=== PATIENT | female | born 1930 | race Caucasian/White ===

== ENCOUNTER 2017-05-10 14:41 | Inpatient (IN) | payer OTHER, MEDICARE ==
[2017-05-10 15:12] VITALS: BMI 30.2
--- NOTE | 2017-05-10 15:28 | PDOC ---
History of Present Illness - General Chief Complaint: Edema Stated Complaint: PCP SENT/SWOLLEN LT HAND Time Seen by Provider: 05/10/17 15:25 History Source: Patient Exam Limitations: No Limitations - History of Present Illness Initial Comments: This is an 87 yo female with h/o dementia, NIDDM, HTN, HLD, and hypothyroidism who presents with her daughter c/o left hand and wrist pain and swelling. She is unable to provide any of her recent medical history secondary to dementia. The patient lives alone but has frequent visitors and a in home sales representative. Her daughter notes that on , the patient's in home sales representative noted she was feeling well and had no hand/wrist pain or swelling. The son visited the patient on Friday and noted she had left hand/wrist pain but no swelling. This morning, the daughter came to visit and saw significant swelling of the left hand. She brought the patient to her PCP, who measured a fever in office, and directed them to the emergency room after the appointment. The patient cannot describe her recent symptoms, but the daughter believes she has otherwise been feeling well lately. Past History - Past Medical History Allergies/Adverse Reactions: Allergies Allergy/AdvReac Type Severity Reaction Status Date / Time No Known Allergies Allergy Verified 05/10/17 15:07 Home Medications: Ambulatory Orders Amlodipine Besylate [Norvasc -] 5 mg PO DAILY 05/10/17 Aspirin [ASA -] 81 mg PO DAILY 05/10/17 Atorvastatin Ca [Lipitor] 20 mg PO DAILY 05/10/17 Cholecalciferol (Vitamin D3) [D3-2000] 1 tab PO DAILY 05/10/17 Cyanocobalamin [Vitamin B12 -] 1 tab PO DAILY 05/10/17 Donepezil HCl [Aricept -] 10 mg PO DAILY 05/10/17 Levothyroxine Sodium [Synthroid] 88 mcg PO DAILY 05/10/17 Levothyroxine [Synthroid -] 100 mcg PO DAILY 05/10/17 Metformin Xr [Glucophage Xr -] 1 tab PO DAILY 05/10/17 Propranolol HCl 60 mg PO DAILY 05/10/17 Uridine 300 mg PO DAILY 05/10/17 Dementia: Yes Diabetes: Yes HTN: Yes Hypercholesterolemia: Yes - Psycho/Social/Smoking Cessation Hx Suicidal Ideation: No Smoking History: Never smoked Review of Systems - Review of Systems Able to Perform ROS?: No (Dementia) *Physical Exam - Vital Signs Last Vital Signs Temp Pulse Resp BP Pulse Ox 99.2 F 76 19 126/75 94 L 05/10/17 15:07 05/10/17 15:07 05/10/17 15:07 05/10/17 15:07 05/10/17 15:07 - Physical Exam General Appearance: Yes: Nourished, Appropriately Dressed, Other (pleasantly confused, hard of hearing). No: Apparent Distress HEENT: positive: EOMI, POONAM, Normal Voice, Hearing Decreased. negative: Scleral Icterus (R), Scleral Icterus (L), Nasal Congestion, Hearing Grossly Normal Neck: positive: Trachea midline, Supple. negative: Tender, Rigid Respiratory/Chest: positive: Lungs Clear, Normal Breath Sounds. negative: Respiratory Distress, Crackles, Rhonchi, Stridor, Wheezing Cardiovascular: positive: Regular Rhythm, Regular Rate, Murmur (3/6 systolic ejection heard best at LUSB). negative: Gallop/S3, Gallop/S4 Comments:: Radial pulses 2+ and symmetric bilaterally Gastrointestinal/Abdominal: positive: Normal Bowel Sounds, Soft. negative: Tender, Organomegaly, Pulsatile Mass, Guarding Musculoskeletal: positive: Normal Inspection. negative: Decreased Range of Motion, Vertebral Tenderness Extremity: positive: Normal Capillary Refill, Other (left dorsal hand with 2+ non-pitting edema extending from mid-proximal phalanges to distal third of forearm, mild dorsal erythema and warmth, pain on ranging wrist +snuffbox tenderness, distally neurovascularly intact). negative: Cyanosis Integumentary: positive: Dry, Warm Neurologic: positive: quill stripper II-XII NML intact, Alert, Normal Mood/Affect, Normal Response ED Treatment Course - LABORATORY CBC & Chemistry Diagram: 05/11/17 06:10 05/11/17 06:10 Medical Decision Making - Medical Decision Making 87 yo female with h/o dementia, NIDDM, HTN, HLD p/w left hand/wrist pain/ swelling/redness/warmth. Reportedly febrile at PCP's office this AM, but not in the ED. Exam notable for mild erythema, mild warmth, and significant swelling of left hand/wrist. Pt is unable to actively range the wrist d/t pain. DDX includes cellulitis, septic arthritis, DVT, gout, abscess. Ordered are CBC, CMP, blood cultures, ESR, CRP, uric acid, hand/wrist x-ray, LUE Doppler. 05/10/17 18:19 Pt's WBC count is 12.5k, remainder of CBC unremarkable. Chemistries hemolyzed along with CRP, uric acid. These are re-ordered. Hand/wrist x-ray without acute bony fracture or deformity. ESR returns as 105. On re-exam left hand and wrist exam is unchanged. Pt is signed out to excellent Dr. Ritchie at 1900. *DC/Admit/Observation/Transfer Diagnosis at time of Disposition: Swelling of joint, hand, left - Discharge Dispostion Condition at time of disposition: Stable - Attestations Physician Attestion: 05/10/17 18:21 I, Dr. Zamzam Dixon, attest that this document has been prepared under my direction and personally reviewed by me in its entirety. I further attest, that it accurately reflects all work, treatment, procedures and medical decision -making performed by me.
[2017-05-10] MEDS ORDERED: ACETAMINOPHEN WITH CODEINE 300MG/30MG TABLET PO ONE (16:03)
--- NOTE | 2017-05-10 16:08 | PDOC ---
Attending Attestation - Medical Decision Making 05/10/17 17:51 Documentation prepared by Eli Nuñez, acting as medical dosimetrist for Kaushal Skelton MD. <Eli Nuñez - Last Filed: 05/10/17 17:51> - Resident Resident Name: Zamzam Dixon - ED Attending Attestation I have performed the following: I have examined & evaluated the patient, The case was reviewed & discussed with the resident, I agree w/resident's findings & plan, Exceptions are as noted - HPI HPI: 05/10/17 16:40 The patient is a 87 year old female with a significant past medical history of dementia, diabetes, hypertension, hypothyroidism, hypercholesterolemia, and osteoporosis, sent by PCP to the Emergency Department with left hand pain and swelling for two days. The patient is a poor historian secondary to dementia, but admits to pain in her left hand. The patient is unsure of injury to the hand and cannot describe the pain. As per the patients daughter, the patient saw her PCP today for swelling and pain to the left hand, wrist, and forearm, who suggested she come to the ED to rule out cellulitis, gout, or fracture. As per the patients daughter, the patients home service advisor noted that the hand was fine on . As per the patients son, the patients hand was painful on Friday but not swollen. - Physicial Exam PE: 05/10/17 16:40 "GENERAL: Well-appearing, well-nourished. No apparent distress. HEENT: Normocephalic, atraumatic. PERRL, EOM intact. CARDIOVASCULAR: Normal S1, S2. Regular rate and rhythm. PULMONARY: Clear to auscultation bilaterally. ABDOMEN: Soft, non-distended, non-tender. EXTREMITIES: Diffuse edema and erythema to left hand, tenderness to palpation over dorsum of the hand most notably at base. Active range of motion limited due to pain although able to passively range hand with minimal pain. No pain upon flexion of extensor tendons. Warm to touch. SKIN: Warm, dry. No rash NEUROLOGICAL: No focal neurological deficits. " 05/10/17 16:43 - Medical Decision Making 05/10/17 16:41 87 F with L hand swelling and pain. Questionable h/o traumatic injury - consider fx (no other signs of traumatic injury on exam). More likely, etiology is infectious. Skin is mildly erythematous, possibly suggesting cellulitis. Suspicion for septic arthritis, as pt unable to range wrist. Will r/o DVT given unilateral hand swelling. - Labs, ESR, CRP - XR - US - IV abx 05/10/17 19:40 Labs thus far notable for elevated ESR. Still pending XR and US reads. Plan to consult ortho once labs and images are completed - concern for septic arthritis with possible overlying cellulitis. Will likely require IV abx and admission. <Kaushal Skelton - Last Filed: 05/10/17 19:44>
[2017-05-10] MEDS ORDERED: ACETAMINOPHEN 325 MG TABLET (FP) ONE (17:10)
[2017-05-10 17:45] LABS: BASOPHIL 0.6 % (0-2.0); EOSINOPHIL 0.1 % (0-4.5); MCH 29.8 pg (25.7-33.7); MCHC 33.8 g/dl (32.0-36.0); MEAN CELL VOLUME 88.3 fl (80-96); MEAN PLT VOLUME 9.6 fl (7.5-11.1); NEUTROPHILS 81.5 % (42.8-82.8); PLATELET COUNT 264 K/MM3 (134-434); WHITE BLOOD COUNT 12.5 K/mm3 (4.0-10.0)
--- NOTE | 2017-05-10 19:53 | PDOC ---
*Physical Exam - Vital Signs Last Vital Signs Temp Pulse Resp BP Pulse Ox 98.1 F 70 18 122/75 94 L 05/10/17 18:34 05/10/17 18:34 05/10/17 18:34 05/10/17 18:34 05/10/17 15:07 ED Treatment Course - LABORATORY CBC & Chemistry Diagram: 05/10/17 17:30 05/10/17 19:00 - ADDITIONAL ORDERS Additional order review: Laboratory Results 05/10/17 05/10/17 17:30 17:30 Sodium Cancelled Potassium Cancelled Chloride Cancelled Carbon Dioxide Cancelled Anion Gap Cancelled BUN Cancelled Creatinine Cancelled Creat Clearance w eGFR Cancelled Random Glucose Cancelled Uric Acid Cancelled Calcium Cancelled Total Bilirubin Cancelled AST Cancelled ALT Cancelled Alkaline Phosphatase Cancelled C-Reactive Protein Cancelled Total Protein Cancelled Albumin Cancelled 05/10/17 17:30 RBC 4.16 MCV 88.3 MCHC 33.8 RDW 15.0 MPV 9.6 Neutrophils % 81.5 Lymphocytes % 8.3 Monocytes % 9.5 Eosinophils % 0.1 Basophils % 0.6 - RADIOLOGY Radiology Studies Ordered: 05/10/17 23:32 L upper extremity US: The left internal jugular vein is patent and compressible. The subclavian vein is patent. The axillary, brachial, basilic and cephalic veins are patent and compressible. The radial and ulnar veins are patent and compressible No evidence of deep vein thrombosis Edema in the superficial soft tissues of the distal forearm L hand XR: There is soft tissue swelling about the wrist and soft tissue swelling over the dorsum of the hand in the region of the MCP joints The bones are osteopenic There is no fracture or dislocation Degenerative changes of the first carpal metacarpal joint - Medications Given in the ED: ED Medications Discontinued Medications Generic Name Dose Route Start Last Admin Trade Name Freq PRN Reason Stop Dose Admin Acetaminophen/Codeine Phosphate 1 tab 05/10/17 16:03 05/10/17 17:11 Tylenol # 3 - PO 05/10/17 16:04 1 tab ONCE ONE Administration Medical Decision Making - Medical Decision Making 05/10/17 19:51 Patient was signed out to me by day team, Dr. Dixon. Follow up needed for: - XR read - CMP, urate, CRP, - Calling ortho ESR at 105. 05/10/17 23:[address] Navarrete, ortho, who wants the patient admitted, ID consult for abx recs. Hospitalist [facility] accepted admission. 05/10/17 23:34 Patient signed out to hospitalist [facility] [employer] [facility]. *DC/Admit/Observation/Transfer Diagnosis at time of Disposition: Swelling of joint, hand, left - Discharge Dispostion Condition at time of disposition: Stable Admit: Yes - Referrals Referrals: Margo Miller MD [Primary Care Provider] - - Patient Instructions - Post Discharge Activity - Attestations Physician Attestion: 05/10/17 23:32 I, Dr. Cortez Ritchie, attest that this document has been prepared under my direction and personally reviewed by me in its entirety. I further attest, that it accurately reflects all work, treatment, procedures and medical decision -making performed by me.
[2017-05-10 19:59] LABS: ALBUMIN 2.8 g/dl (3.4-5.0); ALK PHOS 57 U/L (45-117); ANION GAP 8 (8-16); BILIRUBIN,TOTAL 0.5 mg/dL (0.2-1.0); CALCIUM 8.3 mg/dL (8.5-10.1); CO2 26 mmol/L (21-32); CREATININE 1.1 mg/dL (0.55-1.02); GLUCOSE,RANDOM 126 mg/dL (74-106); SGPT/ALT 14 U/L (12-78); TOT PROT 7.2 g/dl (6.4-8.2); URIC ACID 5.3 mg/dL (2.6-7.2)
[2017-05-10 20:00] LABS: SGOT/AST 27 U/L (15-37)
[2017-05-10] MEDS ORDERED: diphenhydrAMINE HCL 25 MG CAPSULE (FP) PO ONE ×2 (20:34→20:41)
[2017-05-10 20:35] LABS: C-REACTIVE PROTEIN 8.5 MG/DL (0.00-0.3)
--- NOTE | 2017-05-10 23:43 | HP ---
CHIEF COMPLAINT: Left hand/wrist pain, swelling PCP: Dr. Margo Miller HISTORY OF PRESENT ILLNESS: This is a 87 y/o woman with a past medical history of Dementia. Who presents to the ED with her daughter from the PCPs office, for left hand/wrist pain, and swelling. The patient has Dementia and is unable to provide HPI. The patient's daughter who is a physician, reports that the patient was complaining of hand pain on but no swelling. But, today the daughter notes there is erythema, edema, warmth and pain to the patient's left hand. Insect Bite or Trauma is unknown. Per the daughter the patient lives alone and has a SERVICE ADMINISTRATOR from Fri-. ER course was notable for: (1) WBC 12.9, ESR 105, CRP 8.5 (2) Xray of L hand/wrist- no fx, no dislocation, soft tissue swelling (3) Doppler LUE- neg DVT, soft tissue swelling Recent Travel: None PAST MEDICAL HISTORY: HTN HLD DM Hypothyroid Dementia Familial Tremors OSAGE PAST SURGICAL HISTORY: Social History: Smoking: Never Alcohol: None Drugs: None Family History: Non Contributory Allergies No Known Allergies Allergy (Verified 05/10/17 15:07) HOME MEDICATIONS: Home Medications Medication Instructions Recorded Amlodipine Besylate [Norvasc -] 5 mg PO DAILY 05/10/17 Aspirin [ASA -] 81 mg PO DAILY 05/10/17 Atorvastatin Ca [Lipitor] 20 mg PO DAILY 05/10/17 Cholecalciferol (Vitamin D3) 1 tab PO DAILY 05/10/17 [D3-2000] Cyanocobalamin [Vitamin B12 -] 2 tab PO DAILY 05/10/17 Donepezil HCl [Aricept -] 10 mg PO DAILY 05/10/17 Levothyroxine Sodium [Synthroid] 88 mcg PO DAILY 05/10/17 Levothyroxine [Synthroid -] 100 mcg PO DAILY 05/10/17 Metformin Xr [Glucophage Xr -] 1 tab PO DAILY 05/10/17 Propranolol HCl 60 mg PO DAILY 05/10/17 Uridine 300 mg PO DAILY 05/10/17 REVIEW OF SYSTEMS Unable to obtain- Dementia CONSTITUTIONAL: Absent: fever, chills, diaphoresis, generalized weakness, malaise, loss of appetite, weight change HEENT: Absent: rhinorrhea, nasal congestion, throat pain, throat swelling, difficulty swallowing, mouth swelling, ear pain, eye pain, visual changes CARDIOVASCULAR: Absent: chest pain, syncope, palpitations, irregular heart rate, lightheadedness , peripheral edema RESPIRATORY: Absent: cough, shortness of breath, dyspnea with exertion, orthopnea, wheezing, stridor, hemoptysis GASTROINTESTINAL: Absent: abdominal pain, abdominal distension, nausea, vomiting, diarrhea, constipation, melena, hematochezia GENITOURINARY: Absent: dysuria, frequency, urgency, hesitancy, hematuria, flank pain, genital pain MUSCULOSKELETAL: Absent: myalgia, arthralgia, joint swelling, back pain, neck pain SKIN: Absent: rash, itching, pallor HEMATOLOGIC/IMMUNOLOGIC: Absent: easy bleeding, easy bruising, lymphadenopathy, frequent infections ENDOCRINE: Absent: unexplained weight gain, unexplained weight loss, heat intolerance, cold intolerance NEUROLOGIC: Absent: headache, focal weakness or paresthesias, dizziness, unsteady gait, seizure, mental status changes, bladder or bowel incontinence PSYCHIATRIC: Absent: anxiety, depression, suicidal or homicidal ideation, hallucinations. PHYSICAL EXAMINATION Vital Signs - 24 hr 05/10/17 05/10/17 05/10/17 15:07 18:34 20:49 Temperature 99.2 F 98.1 F 98.2 F Pulse Rate 76 Pulse Rate [ 70 65 Apical] Respiratory 19 18 18 Rate Blood Pressure 126/75 Blood Pressure 122/75 112/70 [Right Arm] O2 Sat by Pulse 94 L 99 Oximetry (%) GENERAL: Obese, asleep but easily arousable, oriented to baseline, in no acute distress. HEAD: Normal with no signs of trauma. EYES: Pupils equal, round and reactive to light, extraocular movements intact, sclera anicteric, conjunctiva clear. No lid lag. EARS, NOSE, THROAT: Ears normal, nares patent, oropharynx clear without exudates. Dry mucous membranes. NECK: Normal range of motion, supple without lymphadenopathy, JVD, or masses. LUNGS: Breath sounds equal, clear to auscultation bilaterally. No wheezes, and no crackles. No accessory muscle use. HEART: Regular rate and rhythm, normal S1 and S2, 2/6 systolic murmur, rub or gallop. ABDOMEN: Soft, nontender, not distended, normoactive bowel sounds, no guarding, no rebound, no masses. No hepatomegaly or splenomegaly. MUSCULOSKELETAL: Normal range of motion at all joints. No bony deformities or tenderness. No CVA tenderness. UPPER EXTREMITIES: 2+ pulses, warm, well-perfused. No cyanosis. No clubbing. +1 edema to left hand LOWER EXTREMITIES: 2+ pulses, warm, well-perfused. No calf tenderness. No peripheral edema. NEUROLOGICAL: Cranial nerves II-XII intact. Normal speech. Gait not observed. PSYCHIATRIC: Cooperative. Limited eye contact. Appropriate mood and affect. SKIN: Warm, dry, normal turgor, no rashes, normal capillary refill. + erythematous, warm to touch non-fluctuant to dorsal aspect of left hand noted Laboratory Results - last 24 hr 05/10/17 05/10/17 05/10/17 17:30 17:30 17:30 WBC 12.5 H RBC 4.16 Hgb 12.4 Hct 36.8 MCV 88.3 MCH 29.8 MCHC 33.8 RDW 15.0 Plt Count 264 MPV 9.6 Neutrophils % 81.5 Lymphocytes % 8.3 Monocytes % 9.5 Eosinophils % 0.1 Basophils % 0.6 ESR Sodium Cancelled Potassium Cancelled Chloride Cancelled Carbon Dioxide Cancelled Anion Gap Cancelled BUN Cancelled Creatinine Cancelled Creat Clearance w eGFR Cancelled Random Glucose Cancelled Uric Acid Cancelled Calcium Cancelled Total Bilirubin Cancelled AST Cancelled ALT Cancelled Alkaline Phosphatase Cancelled C-Reactive Protein Cancelled Total Protein Cancelled Albumin Cancelled 05/10/17 05/10/17 17:30 19:00 WBC RBC Hgb Hct MCV MCH MCHC RDW Plt Count MPV Neutrophils % Lymphocytes % Monocytes % Eosinophils % Basophils % ESR 105 H Sodium 134 L Potassium 4.6 Chloride 100 Carbon Dioxide 26 Anion Gap 8 BUN 25 H Creatinine 1.1 H Creat Clearance w eGFR 47.09 Random Glucose 126 H Uric Acid 5.3 Calcium 8.3 L Total Bilirubin 0.5 AST 27 ALT 14 Alkaline Phosphatase 57 C-Reactive Protein 8.5 H Total Protein 7.2 Albumin 2.8 L ASSESSMENT/PLAN: This is a 87 y/o woman with a PMHx of: Dementia, DM, Hypercholesterolemia, Hypothyroid, Familial Tremors, OSAGE. Admitted Cellulitis Left Hand for further evaluation of their emergent condition. Problem List - Problem (1) Cellulitis of hand, left Assessment/Plan: - Likely secondary to infection vs trauma vs DVT - ESR 105, CRP 8.5, WBC 12.5 likely due to infection - Blood Cultures-pending - Xray left hand/wrist- reviewed - Duplex of LUE- negative for DVT - Started Clindamycin for MRSA coverage - Appreciate ID Consult - Appreciate Ortho Consult - Elevate extremity - Tylenol prn - Monitor CBCD - Monitor vitals Code(s): L03.114 - CELLULITIS OF LEFT UPPER LIMB (2) Swelling of joint, hand, left Assessment/Plan: - See above Code(s): M25.442 - EFFUSION, LEFT HAND (3) Dementia Assessment/Plan: - Continue Aricept, Uridine Code(s): F03.90 - UNSPECIFIED DEMENTIA WITHOUT BEHAVIORAL DISTURBANCE (4) HTN (hypertension) Assessment/Plan: - Controlled - Monitor BP - Continue Norvasc - Low Na Diet - Monitor renal function Code(s): I10 - ESSENTIAL (PRIMARY) HYPERTENSION (5) Diabetes mellitus Assessment/Plan: - Stable - BGMs - Continue Metformin - Monitor renal function Code(s): E11.9 - TYPE 2 DIABETES MELLITUS WITHOUT COMPLICATIONS (6) Hypothyroidism Assessment/Plan: - TSH in am - Continue home meds Code(s): E03.9 - HYPOTHYROIDISM, UNSPECIFIED (7) OSAGE (hard of hearing) Code(s): H91.90 - UNSPECIFIED HEARING LOSS, UNSPECIFIED EAR (8) Familial tremor Code(s): G25.0 - ESSENTIAL TREMOR (9) DVT prophylaxis Assessment/Plan: - OOB - SCDs - Heparin SQ Code(s): [id number] - Visit type - Emergency Visit Emergency Visit: Yes ED Registration Date: 05/10/17 Care time: The patient presented to the Emergency Department on the above date and was hospitalized for further evaluation of their emergent condition. - New Patient This patient is new to me today: Yes Date on this admission: 05/10/17 - Critical Care Critical Care patient: No
[2017-05-11] MEDS: CLINDAMYCIN 900 MG PREMIX IVPB 50 ML IVPB SCH ×2 (01:43→10:20)
[2017-05-11] MEDS: LEVOTHYROXINE NA 100 MCG TABLET (FP) PO SCH (06:44)
[2017-05-11 07:30] LABS: BASOPHIL 0.5 % (0-2.0); EOSINOPHIL 1.5 % (0-4.5); MCH 29.5 pg (25.7-33.7); MCHC 33.5 g/dl (32.0-36.0); MEAN CELL VOLUME 88.1 fl (80-96); MEAN PLT VOLUME 9.1 fl (7.5-11.1); PLATELET COUNT 223 K/MM3 (134-434); RDW 15.1 % (11.6-15.6); WHITE BLOOD COUNT 10.2 K/mm3 (4.0-10.0)
[2017-05-11 08:15] LABS: ANION GAP 8 (8-16); CALCIUM 9.1 mg/dL (8.5-10.1); CO2 26 mmol/L (21-32); CREATININE 0.9 mg/dL (0.55-1.02); GLUCOSE,RANDOM 123 mg/dL (74-106)
[2017-05-11] MEDS ORDERED: CHOLECALCIFEROL (VITAMIN D3) 1,000 UNIT TABLET (FP) PO SCH (10:00)
[2017-05-11] MEDS: ASPIRIN 81 MG CHEWABLE TABLETS PO SCH (10:20)
[2017-05-11] MEDS: ATORVASTATIN CA 20 MG TABLET (FP) PO SCH (10:20)
[2017-05-11] MEDS: CYANOCOBALAMIN 1,000 MCG TABLET (FP) PO SCH (10:20)
[2017-05-11] MEDS: DONEPEZIL HCL 10 MG TABLET (FP) PO SCH (10:20)
--- NOTE | 2017-05-11 10:56 | CON.ORTH ---
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 Endocrine: Yes: Diabetes Mellitus - Alcohol/Substance Use Hx Alcohol Use: No - Smoking History Smoking history: Never smoked Home Medications - Allergies Allergies/Adverse Reactions: Allergies Allergy/AdvReac Type Severity Reaction Status Date / Time No Known Allergies Allergy Verified 05/10/17 15:07 - Home Medications Home Medications: Ambulatory Orders Amlodipine Besylate [Norvasc -] 5 mg PO DAILY 05/10/17 Aspirin [ASA -] 81 mg PO DAILY 05/10/17 Atorvastatin Ca [Lipitor] 20 mg PO DAILY 05/10/17 Cholecalciferol (Vitamin D3) [D3-2000] 1 tab PO DAILY 05/10/17 Cyanocobalamin [Vitamin B12 -] 1 tab PO DAILY 05/10/17 Donepezil HCl [Aricept -] 10 mg PO DAILY 05/10/17 Levothyroxine Sodium [Synthroid] 88 mcg PO DAILY 05/10/17 Levothyroxine [Synthroid -] 100 mcg PO DAILY 05/10/17 Metformin Xr [Glucophage Xr -] 1 tab PO DAILY 05/10/17 Propranolol HCl 60 mg PO DAILY 05/10/17 Uridine 300 mg PO DAILY 05/10/17 Review of Systems - Review of Systems Constitutional: denies: Chills, Diaphoresis, Fever HENT: reports: Hearing Loss. denies: Difficult Swallowing Neck: denies: Decreased ROM, Pain on Movement Cardiovascular: denies: Chest Pain, Palpitations Respiratory: denies: Cough Gastrointestinal: denies: Abdominal Pain Physical Exam for Ortho Vital Signs: Vital Signs Temperature 98.8 F 05/11/17 07:26 Pulse Rate 71 05/11/17 07:26 Respiratory Rate 18 05/11/17 07:26 Blood Pressure 124/59 05/11/17 07:26 O2 Sat by Pulse Oximetry (%) 99 05/11/17 01:09 Constitutional: Yes: Well Nourished, No Distress, Calm Extremities: Yes: Other (LUE - no definite erythema, diffuse dorsal swelling of hand, diffuse moderate tenderness, able to move wrist, finger but painful with limited ROM, no effusion at wrist, sensation intact to LT, 2+ rad pulse, intact thumbs up, finger abduction, ok sign) Labs: CBC, BMP 05/11/17 06:10 05/11/17 06:10 Imaging - Results X-ray: Report Reviewed, Image Reviewed (mild degenerative changes to the left wrist and hand) Problem List - Problems (1) Cellulitis of hand, left Code(s): L03.114 - CELLULITIS OF LEFT UPPER LIMB Assessment/Plan -based on exam today no evidence of septic wrist, swelling, pain are more over hand -continue abx -elevate -OT for ROM -no need for aspiration/intervention
[2017-05-11] MEDS: [UNRECOGNIZED DRUG - OTHER] PO SCH (12:29)
[2017-05-11] MEDS ORDERED: PT OWN MED DRAWER 7, Y5N ONE (12:39)
[2017-05-11] MEDS ORDERED: ACETAMINOPHEN 325 MG TABLET (FP) PO PRN (14:58)
--- NOTE | 2017-05-11 15:00 | CONSULT ---
Consult Consult Specialty:: INFECTIOUS DISEASE Reason for Consultation:: Left hand swelling - History of Present Illness Chief Complaint: Left hand swelling and pain, Recent fever History of Present Illness: Asked to evaluate this 87 y.o. female who presents with Left hand/wrist swelling and tenderness first noted by family on Friday. Pt not reliable source of history due to dementia. History provided by daughter at bedside. She was seen by her PMD and noted to be febrile and was sent to the ER. She has been afebrile in the ER and wbc was slightly elevated but now normal. Pt without recent known insect bite or trauma. Currently patient is alert and she states her hand is tender and has decreased range of motion due to pain. No other complaints. - History Source History Provided By: Family Member - Past Medical History ORTHOPEDIC SPECIALIST: Yes: Dementia Cardio/Vascular: Yes: HTN, Hyperlipdemia Endocrine: Yes: Diabetes Mellitus, Hypothyroidism - Alcohol/Substance Use Hx Alcohol Use: No - Smoking History Smoking history: Never smoked - Social History ADL: Independent Home Medications - Allergies Allergies/Adverse Reactions: Allergies Allergy/AdvReac Type Severity Reaction Status Date / Time No Known Allergies Allergy Verified 05/10/17 15:07 - Home Medications Home Medications: Ambulatory Orders Amlodipine Besylate [Norvasc -] 5 mg PO DAILY 05/10/17 Aspirin [ASA -] 81 mg PO DAILY 05/10/17 Atorvastatin Ca [Lipitor] 20 mg PO DAILY 05/10/17 Cholecalciferol (Vitamin D3) [D3-2000] 1 tab PO DAILY 05/10/17 Cyanocobalamin [Vitamin B12 -] 1 tab PO DAILY 05/10/17 Donepezil HCl [Aricept -] 10 mg PO DAILY 05/10/17 Levothyroxine Sodium [Synthroid] 88 mcg PO DAILY 05/10/17 Levothyroxine [Synthroid -] 100 mcg PO DAILY 05/10/17 Metformin Xr [Glucophage Xr -] 1 tab PO DAILY 05/10/17 Propranolol HCl 60 mg PO DAILY 05/10/17 Uridine 300 mg PO DAILY 05/10/17 Review of Systems - Review of Systems Eyes: reports: No Symptoms HENT: reports: No Symptoms Neck: reports: No Symptoms Cardiovascular: reports: No Symptoms Respiratory: reports: No Symptoms Gastrointestinal: reports: No Symptoms Genitourinary: reports: No Symptoms Musculoskeletal: reports: Decreased ROM Integumentary: reports: Erythema (Left hand swelling, erythema, warmth, tenderness) Physical Exam Vital Signs: Vital Signs Temperature 98.5 F 05/11/17 11:00 Pulse Rate 72 05/11/17 11:00 Respiratory Rate 18 05/11/17 11:00 Blood Pressure 95/55 05/11/17 11:00 O2 Sat by Pulse Oximetry (%) 95 05/11/17 09:00 Constitutional: Yes: No Distress HENT: Yes: WNL Neck: Yes: WNL Cardiovascular: Yes: WNL Respiratory: Yes: WNL, CTA Bilaterally Gastrointestinal: Yes: WNL, Normal Bowel Sounds Renal/: Yes: WNL Extremities: Yes: Erythema Edema: Yes Edema: LUE: 1+ (Lt hand extending to distal forearm, no fluctuance) Peripheral Pulses WNL: Yes Neurological: Yes: Alert Labs: CBC, BMP 05/11/17 06:10 05/11/17 06:10 Imaging - Results X-ray: Report Reviewed (soft tissue swelling of forearm, no fracture/bone lesions) Assessment/Plan Lt hand/wrist edema/Cellulitis DM -- continue Clindamycin for now -- f/u blood cultures -- continue monitor, pt currently afebrile, stable -- Orthopedics eval appreciated
--- NOTE | 2017-05-11 15:26 | PN ---
Physical Exam: SUBJECTIVE: Patient seen and examined. She has LUE tenderness. She doesn't remember hitting it or any bug bites. Daughter at bedside. OBJECTIVE: Vital Signs Period Temp Pulse Resp BP Sys/Zavaal Pulse Ox Last 24 Hr 98.2 F-98.9 F 69-72 18-18 95-126/55-64 95-99 PE Neuro: alert, awake, cn 2-12intact, confused +tremor Pulm: mild b/l basilar crackles, no wheezing CV: s1 s2 rrr 3/6 systolic murmur Abd: s nt nd + bs Ext: L great toe fungal infection- stable, no le edema Skin: clear Laboratory Results - last 24 hr 05/11/17 05/11/17 05/11/17 06:06 06:10 06:10 WBC 10.2 H RBC 4.09 Hgb 12.1 Hct 36.1 MCV 88.1 MCH 29.5 MCHC 33.5 RDW 15.1 Plt Count 223 MPV 9.1 Neutrophils % 71.0 Lymphocytes % 13.9 D Monocytes % 13.1 H Eosinophils % 1.5 D Basophils % 0.5 Sodium 134 L Potassium 4.2 Chloride 100 Carbon Dioxide 26 Anion Gap 8 BUN 19 H D Creatinine 0.9 POC Glucometer 176 Random Glucose 123 H Calcium 9.1 TSH 05/11/17 06:10 TSH 1.99 Current Medications Generic Name Dose Route Start Last Admin Trade Name Freq PRN Reason Stop Dose Admin Acetaminophen 650 mg 05/11/17 14:58 05/11/17 15:30 Tylenol - PO 650 mg Q4H PRN Administration FEVER OR PAIN Amlodipine Besylate 5 mg 05/11/17 10:00 05/11/17 15:39 Norvasc - PO Not Given DAILY SARAHY Aspirin 81 mg 05/11/17 10:00 05/11/17 10:20 Asa - PO 81 mg DAILY SARAHY Administration Atorvastatin Calcium 20 mg 05/11/17 10:00 05/11/17 10:20 Lipitor - PO 20 mg DAILY SARAHY Administration Cyanocobalamin 1,000 mcg 05/11/17 10:00 05/11/17 10:20 Vitamin B12 - PO 1,000 mcg DAILY SARAHY Administration Donepezil HCl 10 mg 05/11/17 10:00 05/11/17 10:20 Aricept - PO 10 mg DAILY SARAHY Administration Clindamycin Phosphate 50 mls @ 100 mls/hr 05/11/17 18:00 Cleocin 600 Mg Premix Ivpb - IVPB Q8H-IV SARAHY Insulin Aspart 1 vial 05/11/17 16:30 Novolog Vial Sliding Scale - SQ ACHS [facility] Protocol Levothyroxine Sodium 88 mcg 05/12/17 07:00 Synthroid - PO Q2D@0700 SARAHY Levothyroxine Sodium 100 mcg 05/11/17 07:00 05/11/17 06:44 Synthroid - PO 100 mcg Q2D@0700 SARAHY Administration Non-Formulary Medication 300 mg 05/11/17 11:30 05/11/17 12:29 Uridine [Uridine] PO 300 mg DAILY SARAHY Administration Propranolol HCl 60 mg 05/11/17 15:36 Inderal La - PO DAILY [facility] Assessment: 87 year old female with pmhx dementia, DM II, HTN, HLD, and osteoporosis admitted with fever and increased L hand swelling x2 days Plan: 1. Left hand/forearm cellulitis - Xray negative for gas, soft tissue swelling - DVT negative - Decrease clind 600mg q8 - Elevated per ortho, no acute intervention - ID following 2. HTN - Controlled - Propranolol 60mg daily (held today low bp) - Norvasc 5mg daily 3. Hypothyroidism - Synthroid 100mcg (received today) - Synthroid 88mcg q2d 4. Dementia - Aricept 10mg daily - Vit 12 5. DM II - ISS, BGM ACHS - Hold metformin 6. HLD - Lipitor - ASA Visit type - Emergency Visit Emergency Visit: Yes ED Registration Date: 05/10/17 Care time: The patient presented to the Emergency Department on the above date and was hospitalized for further evaluation of their emergent condition. - New Patient This patient is new to me today: Yes Date on this admission: 05/11/17 - Critical Care Critical Care patient: No
[2017-05-11] MEDS: amLODIPine BESYLATE 5 MG TABLET (FP) PO SCH (15:39)
[2017-05-11] MEDS: CLINDAMYCIN 600MG PREMIX IVPB 50 ML IVPB SCH (17:19)
[2017-05-11] MEDS: INSULIN SLIDING SCALE (NOVOLOG) 1 VIAL SQ SCH ×2 (17:19→21:58)
[2017-05-11] MEDS ORDERED: CEFAZOLIN (PRE-DOCKED) 50 ML IVPB SCH (18:00)
[2017-05-12] MEDS: CLINDAMYCIN 600MG PREMIX IVPB 50 ML IVPB SCH ×2 (01:22→10:49)
[2017-05-12] MEDS: LEVOTHYROXINE NA 88 MCG TABLET (FP) PO SCH (06:24)
[2017-05-12] MEDS: INSULIN SLIDING SCALE (NOVOLOG) 1 VIAL SQ SCH ×4 (06:24→23:59)
[2017-05-12 08:37] LABS: BASOPHIL 0.7 % (0-2.0); EOSINOPHIL 3.5 % (0-4.5); MCH 30.1 pg (25.7-33.7); MCHC 34.1 g/dl (32.0-36.0); MEAN CELL VOLUME 88.4 fl (80-96); MEAN PLT VOLUME 8.9 fl (7.5-11.1); NEUTROPHILS 71.1 % (42.8-82.8); PLATELET COUNT 225 K/MM3 (134-434); RDW 14.9 % (11.6-15.6); WHITE BLOOD COUNT 9.5 K/mm3 (4.0-10.0)
--- NOTE | 2017-05-12 08:53 | PN ---
Progress Note (short form) - Note Progress Note: Subjective: The patient was seen and examined at the bedside, she has complaints that her eggs are not salty enough. Instructed patient to keep left arm elevated. Current Medications Generic Name Dose Route Start Last Admin Trade Name Freq PRN Reason Stop Dose Admin Acetaminophen 650 mg 05/11/17 14:58 05/11/17 15:30 Tylenol - PO 650 mg Q4H PRN Administration FEVER OR PAIN Amlodipine Besylate 5 mg 05/11/17 10:00 05/11/17 15:39 Norvasc - PO Not Given DAILY SARAHY Aspirin 81 mg 05/11/17 10:00 05/11/17 10:20 Asa - PO 81 mg DAILY SARAHY Administration Atorvastatin Calcium 20 mg 05/11/17 10:00 05/11/17 10:20 Lipitor - PO 20 mg DAILY SARAHY Administration Cyanocobalamin 1,000 mcg 05/11/17 10:00 05/11/17 10:20 Vitamin B12 - PO 1,000 mcg DAILY SARAHY Administration Donepezil HCl 10 mg 05/11/17 10:00 05/11/17 10:20 Aricept - PO 10 mg DAILY SARAHY Administration Clindamycin Phosphate 50 mls @ 100 mls/hr 05/11/17 18:00 05/12/17 01:22 Cleocin 600 Mg Premix Ivpb - IVPB 100 mls/hr Q8H-IV SARAHY Administration Insulin Aspart 1 vial 05/11/17 16:30 05/12/17 06:24 Novolog Vial Sliding Scale - SQ Not Given ACHS [facility] Protocol Levothyroxine Sodium 88 mcg 05/12/17 07:00 05/12/17 06:24 Synthroid - PO 88 mcg Q2D@0700 SARAHY Administration Levothyroxine Sodium 100 mcg 05/11/17 07:00 05/11/17 06:44 Synthroid - PO 100 mcg Q2D@0700 SARAHY Administration Non-Formulary Medication 300 mg 05/11/17 11:30 05/11/17 12:29 Uridine [Uridine] PO 300 mg DAILY SARAHY Administration Propranolol HCl 60 mg 05/11/17 15:36 Inderal La - PO DAILY SARAHY Objective: Vital Signs Period Temp Pulse Resp BP Sys/Zavala Pulse Ox Last 24 Hr 98.2 F-99.5 F 66-72 18-20 95-119/55-60 95 Physical Exam: General: Confused, NAD Lungs: CTA bilaterally Heart: RRR, S1S2 Abd: Soft, non-tender, non-distended. Normoactive bowel sounds Ext: B/l upper extremity tremor. LUE with erythema and dependent edema Neuro: No focal deficits CBCD WBC 9.5 K/mm3 (4.0-10.0) 05/12/17 07:05 RBC 4.01 M/mm3 (3.60-5.2) 05/12/17 07:05 Hgb 12.1 GM/dL (10.7-15.3) 05/12/17 07:05 Hct 35.5 % (32.4-45.2) 05/12/17 07:05 MCV 88.4 fl (80-96) 05/12/17 07:05 MCHC 34.1 g/dl (32.0-36.0) 05/12/17 07:05 RDW 14.9 % (11.6-15.6) 05/12/17 07:05 Plt Count 225 K/MM3 (134-434) 05/12/17 07:05 MPV 8.9 fl (7.5-11.1) 05/12/17 07:05 CMP Sodium 134 mmol/L (136-145) L 05/11/17 06:10 Potassium 4.2 mmol/L (3.5-5.1) 05/11/17 06:10 Chloride 100 mmol/L (98-107) 05/11/17 06:10 Carbon Dioxide 26 mmol/L (21-32) 05/11/17 06:10 Anion Gap 8 (8-16) 05/11/17 06:10 BUN 19 mg/dL (7-18) H D 05/11/17 06:10 Creatinine 0.9 mg/dL (0.55-1.02) 05/11/17 06:10 Creat Clearance w eGFR 47.09 (>60) 05/10/17 19:00 Random Glucose 123 mg/dL (74-106) H 05/11/17 06:10 Calcium 9.1 mg/dL (8.5-10.1) 05/11/17 06:10 Total Bilirubin 0.5 mg/dL (0.2-1.0) 05/10/17 19:00 AST 27 U/L (15-37) 05/10/17 19:00 ALT 14 U/L (12-78) 05/10/17 19:00 Alkaline Phosphatase 57 U/L (45-117) 05/10/17 19:00 Total Protein 7.2 g/dl (6.4-8.2) 05/10/17 19:00 Albumin 2.8 g/dl (3.4-5.0) L 05/10/17 19:00 Microbiology 05/10/17 17:30 Blood - Peripheral Venous Blood Culture - Preliminary NO GROWTH OBTAINED AFTER 24 HOURS, INCUBATION TO CONTINUE FOR 4 DAYS. 05/10/17 17:30 Blood - Peripheral Venous Blood Culture - Preliminary NO GROWTH OBTAINED AFTER 24 HOURS, INCUBATION TO CONTINUE FOR 4 DAYS. Assessment: This is an 87 year old female with PMHx of dementia, DM, HTN, hyperlipidemia, osteoporosis, who presented to the ED with fever and left hand swelling x2 days. Plan: 1) ID: Left upper extremity cellulitis - LUE doppler negative for DVT - Left arm x-ray with no acute pathology. Negative for gas - Continue Clindamycin 600mg IVPB q8h - Keep left arm elevated - Appreciate ID consult - Appreciate ortho consult 2) Cardiology: HTN - Controlled - Continue Propranolol - Continue Norvasc - Hold BP meds if SBP <110 Hyperlipidemia - Continue Lipitor 3) Endocrine: Hypothyroidism - Continue Synthroid DM - BGM ACHS - ISS ACHS 4) Psych: Dementia - Continue Aricept - Continue Cyanocobalamin 5) F/E/N: - Monitor electrolytes - Sodium controlled, diabetic diet 6) Prophylaxis: - PT - Heparin 5,000u sq bid 7) Dispo: - Requires continued inpatient care CODE STATUS: FULL CODE Visit type - Emergency Visit Emergency Visit: Yes ED Registration Date: 05/10/17 Care time: The patient presented to the Emergency Department on the above date and was hospitalized for further evaluation of their emergent condition. - New Patient This patient is new to me today: Yes Date on this admission: 05/12/17 - Critical Care Critical Care patient: No
[2017-05-12 09:02] LABS: ANION GAP 6 (8-16); CALCIUM 8.6 mg/dL (8.5-10.1); CO2 28 mmol/L (21-32); CREATININE 0.9 mg/dL (0.55-1.02); GLUCOSE,RANDOM 117 mg/dL (74-106)
[2017-05-12] MEDS ORDERED: PT OWN MED DRAWER 7, Y5N ONE ×2 (10:44→17:47)
[2017-05-12] MEDS: DONEPEZIL HCL 10 MG TABLET (FP) PO SCH (10:49)
[2017-05-12] MEDS: HEPARIN NA (PORCINE) 5,000 UNITS/ML 1ML VIAL SQ SCH ×2 (10:50→23:00)
[2017-05-12] MEDS: CYANOCOBALAMIN 1,000 MCG TABLET (FP) PO SCH (10:50)
[2017-05-12] MEDS: ASPIRIN 81 MG CHEWABLE TABLETS PO SCH (10:50)
[2017-05-12] MEDS: ATORVASTATIN CA 20 MG TABLET (FP) PO SCH (10:50)
[2017-05-12] MEDS: amLODIPine BESYLATE 5 MG TABLET (FP) PO SCH (10:50)
[2017-05-12] MEDS: [UNRECOGNIZED DRUG - OTHER] PO SCH (10:51)
--- NOTE | 2017-05-12 11:31 | PN ---
Progress Note, Physician History of Present Illness: patient with swelling of the left hand was on clinda patients swelling of the hand extends upto her elbow tenderness at the wrist - Current Medication List Current Medications: Active Medications Acetaminophen (Tylenol -) 650 mg PO Q4H PRN PRN Reason: FEVER OR PAIN Last Admin: 05/11/17 15:30 Dose: 650 mg Amlodipine Besylate (Norvasc -) 5 mg PO DAILY [facility] Last Admin: 05/12/17 10:50 Dose: 5 mg Aspirin (Asa -) 81 mg PO DAILY [facility] Last Admin: 05/12/17 10:50 Dose: 81 mg Atorvastatin Calcium (Lipitor -) 20 mg PO DAILY [facility] Last Admin: 05/12/17 10:50 Dose: 20 mg Cyanocobalamin (Vitamin B12 -) 1,000 mcg PO DAILY [facility] Last Admin: 05/12/17 10:50 Dose: 1,000 mcg Donepezil HCl (Aricept -) 10 mg PO DAILY [facility] Last Admin: 05/12/17 10:49 Dose: 10 mg Heparin Sodium (Porcine) (Heparin -) 5,000 unit SQ BID [facility] Last Admin: 05/12/17 10:50 Dose: 5,000 unit Piperacillin Sod/Tazobactam (Sod 3.375 gm/ Dextrose) 50 mls @ 100 mls/hr IVPB Q8H-IV SARAHY PRN Reason: Protocol Insulin Aspart (Novolog Vial Sliding Scale -) 1 vial SQ ACHS [facility] PRN Reason: Protocol Last Admin: 05/12/17 11:23 Dose: Not Given Levothyroxine Sodium (Synthroid -) 88 mcg PO Q2D@0700 [facility] Last Admin: 05/12/17 06:24 Dose: 88 mcg Levothyroxine Sodium (Synthroid -) 100 mcg PO Q2D@0700 [facility] Last Admin: 05/11/17 06:44 Dose: 100 mcg Non-Formulary Medication (Uridine [Uridine]) 300 mg PO DAILY [facility] Last Admin: 05/12/17 10:51 Dose: Not Given Propranolol HCl (Inderal La -) 60 mg PO DAILY [facility] Last Admin: 05/12/17 10:52 Dose: 60 mg - Objective Vital Signs: Vital Signs Temperature 99.5 F 05/12/17 06:23 Pulse Rate 66 05/12/17 06:23 Respiratory Rate 20 05/12/17 06:23 Blood Pressure 119/60 05/12/17 06:23 O2 Sat by Pulse Oximetry (%) 95 05/11/17 09:00 Constitutional: Yes: Calm, Mild Distress Eyes: Yes: Conjunctiva Clear Cardiovascular: Yes: Regular Rate and Rhythm Respiratory: Yes: Regular, CTA Bilaterally Gastrointestinal: Yes: Normal Bowel Sounds, Soft Musculoskeletal: Yes: Other Extremities: Yes: Erythema Integumentary: Yes: Erythema, Other (erythematous, warm left hand noted) Neurological: Yes: Alert, Other (dementia) Psychiatric: Yes: Alert, Other (dementia) Labs: CBC, BMP 05/12/17 07:05 05/12/17 07:05 - ....Imaging X-ray: Report Reviewed, Image Reviewed Assessment/Plan Problem List - Problem (1) Cellulitis of hand, left Code(s): L03.114 - CELLULITIS OF LEFT UPPER LIMB (2) Swelling of joint, hand, left Code(s): M25.442 - EFFUSION, LEFT HAND (3) Dementia Code(s): F03.90 - UNSPECIFIED DEMENTIA WITHOUT BEHAVIORAL DISTURBANCE (4) HTN (hypertension) Code(s): I10 - ESSENTIAL (PRIMARY) HYPERTENSION (5) Diabetes mellitus Code(s): E11.9 - TYPE 2 DIABETES MELLITUS WITHOUT COMPLICATIONS (6) Hypothyroidism Code(s): E03.9 - HYPOTHYROIDISM, UNSPECIFIED (7) [place] (hard of hearing) Code(s): H91.90 - UNSPECIFIED HEARING LOSS, UNSPECIFIED EAR (8) Familial tremor Code(s): G25.0 - ESSENTIAL TREMOR this looks like this is a strep infection plan will stop clinda will switch to zosyn elevation of the arm rest as per primary team
[2017-05-12] MEDS ORDERED: DEXTROSE 5%-WATER - 50 ML IVPB ONE ×3 (11:40→22:59)
[2017-05-12] MEDS ORDERED: PIPERACILLIN/TAZOBACTAM 3.375 GM VIAL IVPB ONE ×3 (11:40→22:59)
[2017-05-12] MEDS: PIPERACILLIN/TAZOB 3.375 GM 3.375 GM in DEXTROSE 5%-WATER - 50 ML IVPB SCH ×2 (11:45→18:43)
[2017-05-12] MEDS ORDERED: INSULIN (NOVOLOG) ASPART 100 UNITS/ML 10ML VIAL ONE ×3 (17:03→20:35)
[2017-05-12] MEDS ORDERED: diphenhydrAMINE HCL 25 MG CAPSULE (FP) PO ONE (19:54)
--- NOTE | 2017-05-13 00:18 | HOSP ---
Subjective - Review of Symptoms Events since last encounter: Hospitalist Encounter Notified by the nurse, that the patient was increasingly agitated and not following commands. Arrived to the nurses station, the patient was received standing at the desk, requesting to go home. The patient's son Leander was at the desk as well. I explained to him the plan of care for the patient he agreed. Ordered Ativan 0.25 mg IV stat. Informed by the RN that the medication leaked out for the IV tubing Ordered Ativan 0.25 mg IV stat Patient responded well to medication Will continue to monitor Physical Examination Vital Signs: Vital Signs Temperature 98.7 F 05/12/17 18:00 Pulse Rate 72 05/12/17 18:00 Respiratory Rate 20 05/12/17 18:00 Blood Pressure 108/59 05/12/17 14:48 O2 Sat by Pulse Oximetry (%) 96 05/12/17 18:16 Constitutional: Yes: Anxious Cardiovascular: Yes: WNL, Regular Rate and Rhythm Respiratory: Yes: WNL, Regular, CTA Bilaterally Neurological: Yes: Confusion ...Motor Strength: WNL Psychiatric: Yes: Agitated Labs: CBC, BMP 05/12/17 07:05 05/12/17 07:05
[2017-05-13] MEDS: PIPERACILLIN/TAZOB 3.375 GM 3.375 GM in DEXTROSE 5%-WATER - 50 ML IVPB SCH ×3 (01:43→17:54)
[2017-05-13] MEDS: INSULIN SLIDING SCALE (NOVOLOG) 1 VIAL SQ SCH ×4 (06:26→21:41)
[2017-05-13] MEDS: LEVOTHYROXINE NA 100 MCG TABLET (FP) PO SCH (06:26)
[2017-05-13] MEDS ORDERED: INSULIN (NOVOLOG) ASPART 100 UNITS/ML 10ML VIAL ONE (06:55)
[2017-05-13] MEDS ORDERED: IBUPROFEN 400 MG TABLET (FP) PO ONE (07:01)
[2017-05-13] MEDS ORDERED: PIPERACILLIN/TAZOBACTAM 3.375 GM VIAL IVPB ONE ×4 (12:09→22:16)
[2017-05-13] MEDS ORDERED: DEXTROSE 5%-WATER - 50 ML IVPB ONE ×4 (12:09→22:16)
[2017-05-13] MEDS: ASPIRIN 81 MG CHEWABLE TABLETS PO SCH (12:16)
[2017-05-13] MEDS: DONEPEZIL HCL 10 MG TABLET (FP) PO SCH (12:16)
[2017-05-13] MEDS: CYANOCOBALAMIN 1,000 MCG TABLET (FP) PO SCH (12:16)
[2017-05-13] MEDS: amLODIPine BESYLATE 5 MG TABLET (FP) PO SCH (12:16)
[2017-05-13] MEDS: ATORVASTATIN CA 20 MG TABLET (FP) PO SCH (12:16)
[2017-05-13] MEDS: HEPARIN NA (PORCINE) 5,000 UNITS/ML 1ML VIAL SQ SCH ×2 (12:22→21:41)
--- NOTE | 2017-05-13 13:22 | PN ---
Progress Note (short form) - Note Progress Note: Subjective: The patient was seen and examined at the bedside, she is complaining she does cannot find her mayonnaise packets for breakfast Current Medications Generic Name Dose Route Start Last Admin Trade Name Freq PRN Reason Stop Dose Admin Acetaminophen 650 mg 05/11/17 14:58 05/11/17 15:30 Tylenol - PO 650 mg Q4H PRN Administration FEVER OR PAIN Amlodipine Besylate 5 mg 05/11/17 10:00 05/13/17 12:16 Norvasc - PO 5 mg DAILY SARAHY Administration Aspirin 81 mg 05/11/17 10:00 05/13/17 12:16 Asa - PO 81 mg DAILY SARAHY Administration Atorvastatin Calcium 20 mg 05/11/17 10:00 05/13/17 12:16 Lipitor - PO 20 mg DAILY SARAHY Administration Cyanocobalamin 1,000 mcg 05/11/17 10:00 05/13/17 12:16 Vitamin B12 - PO 1,000 mcg DAILY SARAHY Administration Donepezil HCl 10 mg 05/11/17 10:00 05/13/17 12:16 Aricept - PO 10 mg DAILY SARAHY Administration Heparin Sodium (Porcine) 5,000 unit 05/12/17 10:00 05/13/17 12:22 Heparin - SQ 5,000 unit BID SARAHY Administration Piperacillin Sod/Tazobactam 50 mls @ 100 mls/hr 05/12/17 11:30 05/13/17 12:19 Sod 3.375 gm/ Dextrose IVPB 100 mls/hr Q8H-IV SARAHY Administration Protocol Insulin Aspart 1 vial 05/11/17 16:30 05/13/17 12:20 Novolog Vial Sliding Scale - SQ Not Given ACHS [facility]AHY Protocol Levothyroxine Sodium 88 mcg 05/12/17 07:00 05/12/17 06:24 Synthroid - PO 88 mcg Q2D@0700 SARAHY Administration Levothyroxine Sodium 100 mcg 05/11/17 07:00 05/13/17 06:26 Synthroid - PO 100 mcg Q2D@0700 SARAHY Administration Lorazepam 0.25 mg 05/13/17 00:11 Ativan Injection - IVPUSH 05/14/17 00:10 Q6H PRN ANXIETY Non-Formulary Medication 300 mg 05/11/17 11:30 05/12/17 10:51 Uridine [Uridine] PO Not Given DAILY SARAHY Propranolol HCl 60 mg 05/12/17 10:00 05/13/17 12:16 Inderal La - PO 60 mg DAILY SARAHY Administration Objective: Vital Signs Period Temp Pulse Resp BP Sys/Zavala Pulse Ox Last 24 Hr 98.5 F-99 F 63-72 20-20 108-136/59-80 96-96 Physical Exam: General: Confused, NAD Lungs: CTA bilaterally Heart: RRR, S1S2 Abd: Soft, non-tender, non-distended. Normoactive bowel sounds Ext: B/l upper extremity tremor. LUE with erythema and dependent edema Neuro: No focal deficits CBCD WBC 9.5 K/mm3 (4.0-10.0) 05/12/17 07:05 RBC 4.01 M/mm3 (3.60-5.2) 05/12/17 07:05 Hgb 12.1 GM/dL (10.7-15.3) 05/12/17 07:05 Hct 35.5 % (32.4-45.2) 05/12/17 07:05 MCV 88.4 fl (80-96) 05/12/17 07:05 MCHC 34.1 g/dl (32.0-36.0) 05/12/17 07:05 RDW 14.9 % (11.6-15.6) 05/12/17 07:05 Plt Count 225 K/MM3 (134-434) 05/12/17 07:05 MPV 8.9 fl (7.5-11.1) 05/12/17 07:05 CMP Sodium 136 mmol/L (136-145) 05/12/17 07:05 Potassium 4.2 mmol/L (3.5-5.1) 05/12/17 07:05 Chloride 102 mmol/L (98-107) 05/12/17 07:05 Carbon Dioxide 28 mmol/L (21-32) 05/12/17 07:05 Anion Gap 6 (8-16) L 05/12/17 07:05 BUN 20 mg/dL (7-18) H 05/12/17 07:05 Creatinine 0.9 mg/dL (0.55-1.02) 05/12/17 07:05 Creat Clearance w eGFR 47.09 (>60) 05/10/17 19:00 Random Glucose 117 mg/dL (74-106) H 05/12/17 07:05 Calcium 8.6 mg/dL (8.5-10.1) 05/12/17 07:05 Total Bilirubin 0.5 mg/dL (0.2-1.0) 05/10/17 19:00 AST 27 U/L (15-37) 05/10/17 19:00 ALT 14 U/L (12-78) 05/10/17 19:00 Alkaline Phosphatase 57 U/L (45-117) 05/10/17 19:00 Total Protein 7.2 g/dl (6.4-8.2) 05/10/17 19:00 Albumin 2.8 g/dl (3.4-5.0) L 05/10/17 19:00 Microbiology 05/10/17 17:30 Blood - Peripheral Venous Blood Culture - Preliminary NO GROWTH OBTAINED AFTER 48 HOURS, INCUBATION TO CONTINUE FOR 3 DAYS. 05/10/17 17:30 Blood - Peripheral Venous Blood Culture - Preliminary NO GROWTH OBTAINED AFTER 48 HOURS, INCUBATION TO CONTINUE FOR 3 DAYS. Assessment: This is an 87 year old female with PMHx of dementia, DM, HTN, hyperlipidemia, osteoporosis, who presented to the ED with fever and left hand swelling x2 days. Plan: 1) ID: Left upper extremity cellulitis - LUE doppler negative for DVT - Left arm x-ray with no acute pathology. Negative for gas - Abx switched to Zosyn yesterday - Keep left arm elevated - Appreciate ID consult - Appreciate ortho consult 2) Cardiology: HTN - Controlled - Continue Propranolol - Continue Norvasc - Hold BP meds if SBP <110 Hyperlipidemia - Continue Lipitor 3) Endocrine: Hypothyroidism - Continue Synthroid DM - BGM ACHS - ISS ACHS 4) Psych: Dementia - Continue Aricept - Continue Cyanocobalamin 5) F/E/N: - Monitor electrolytes - Sodium controlled, diabetic diet 6) Prophylaxis: - PT - Heparin 5,000u sq bid 7) Dispo: - Requires continued inpatient care CODE STATUS: FULL CODE Visit type - Emergency Visit Emergency Visit: Yes ED Registration Date: 05/10/17 Care time: The patient presented to the Emergency Department on the above date and was hospitalized for further evaluation of their emergent condition. - New Patient This patient is new to me today: No - Critical Care Critical Care patient: No
--- NOTE | 2017-05-13 13:38 | PN ---
Progress Note, Physician History of Present Illness: patient with no complaints patient hand looking better - Current Medication List Current Medications: Active Medications Acetaminophen (Tylenol -) 650 mg PO Q4H PRN PRN Reason: FEVER OR PAIN Last Admin: 05/11/17 15:30 Dose: 650 mg Amlodipine Besylate (Norvasc -) 5 mg PO DAILY [facility] Last Admin: 05/13/17 12:16 Dose: 5 mg Aspirin (Asa -) 81 mg PO DAILY [facility] Last Admin: 05/13/17 12:16 Dose: 81 mg Atorvastatin Calcium (Lipitor -) 20 mg PO DAILY [facility] Last Admin: 05/13/17 12:16 Dose: 20 mg Cyanocobalamin (Vitamin B12 -) 1,000 mcg PO DAILY [facility] Last Admin: 05/13/17 12:16 Dose: 1,000 mcg Donepezil HCl (Aricept -) 10 mg PO DAILY [facility] Last Admin: 05/13/17 12:16 Dose: 10 mg Heparin Sodium (Porcine) (Heparin -) 5,000 unit SQ BID [facility] Last Admin: 05/13/17 12:22 Dose: 5,000 unit Piperacillin Sod/Tazobactam (Sod 3.375 gm/ Dextrose) 50 mls @ 100 mls/hr IVPB Q8H-IV [facility]AHY PRN Reason: Protocol Last Admin: 05/13/17 12:19 Dose: 100 mls/hr Insulin Aspart (Novolog Vial Sliding Scale -) 1 vial SQ ACHS [facility]AHY PRN Reason: Protocol Last Admin: 05/13/17 12:20 Dose: Not Given Levothyroxine Sodium (Synthroid -) 88 mcg PO Q2D@0700 [facility] Last Admin: 05/12/17 06:24 Dose: 88 mcg Levothyroxine Sodium (Synthroid -) 100 mcg PO Q2D@0700 [facility] Last Admin: 05/13/17 06:26 Dose: 100 mcg Lorazepam (Ativan Injection -) 0.25 mg IVPUSH Q6H PRN PRN Reason: ANXIETY Stop: 05/14/17 00:10 Non-Formulary Medication (Uridine [Uridine]) 300 mg PO DAILY [facility] Last Admin: 05/12/17 10:51 Dose: Not Given Propranolol HCl (Inderal La -) 60 mg PO DAILY [facility] Last Admin: 05/13/17 12:16 Dose: 60 mg - Objective Vital Signs: Vital Signs Temperature 99 F 05/13/17 06:00 Pulse Rate 71 05/13/17 06:00 Respiratory Rate 20 05/13/17 06:00 Blood Pressure 136/80 05/13/17 06:00 O2 Sat by Pulse Oximetry (%) 96 05/13/17 02:39 Constitutional: Yes: No Distress, Calm HENT: Yes: Atraumatic Cardiovascular: Yes: Regular Rate and Rhythm Respiratory: Yes: Regular, CTA Bilaterally Gastrointestinal: Yes: Normal Bowel Sounds, Soft Musculoskeletal: Yes: Other Extremities: Yes: Other Neurological: Yes: Alert, Other Psychiatric: Yes: Other (dementia) Labs: CBC, BMP 05/12/17 07:05 05/12/17 07:05 Assessment/Plan Problem List - Problem (1) Cellulitis of hand, left Code(s): L03.114 - CELLULITIS OF LEFT UPPER LIMB (2) Swelling of joint, hand, left Code(s): M25.442 - EFFUSION, LEFT HAND (3) Dementia Code(s): F03.90 - UNSPECIFIED DEMENTIA WITHOUT BEHAVIORAL DISTURBANCE (4) HTN (hypertension) Code(s): I10 - ESSENTIAL (PRIMARY) HYPERTENSION (5) Diabetes mellitus Code(s): E11.9 - TYPE 2 DIABETES MELLITUS WITHOUT COMPLICATIONS (6) Hypothyroidism Code(s): E03.9 - HYPOTHYROIDISM, UNSPECIFIED (7) [place] (hard of hearing) Code(s): H91.90 - UNSPECIFIED HEARING LOSS, UNSPECIFIED EAR (8) Familial tremor Code(s): G25.0 - ESSENTIAL TREMOR this looks like this is a strep infection plan continue zosyn elevation of the hand
[2017-05-13] MEDS: [UNRECOGNIZED DRUG - OTHER] PO SCH (16:32)
[2017-05-13] MEDS ORDERED: ARTIFICIAL TEARS (POLYVINYL ALCOHOL 1.4%) OPTH DROPS OU PRN (17:40)
[2017-05-14] MEDS: PIPERACILLIN/TAZOB 3.375 GM 3.375 GM in DEXTROSE 5%-WATER - 50 ML IVPB SCH ×2 (01:23→10:04)
[2017-05-14] MEDS: INSULIN SLIDING SCALE (NOVOLOG) 1 VIAL SQ SCH ×2 (07:02→11:25)
[2017-05-14] MEDS: LEVOTHYROXINE NA 88 MCG TABLET (FP) PO SCH (07:02)
[2017-05-14 07:11] LABS: BASOPHIL 0.7 % (0-2.0); EOSINOPHIL 4.6 % (0-4.5); MCH 29.5 pg (25.7-33.7); MCHC 33.7 g/dl (32.0-36.0); MEAN CELL VOLUME 87.5 fl (80-96); MEAN PLT VOLUME 8.5 fl (7.5-11.1); PLATELET COUNT 266 K/MM3 (134-434); RDW 15.1 % (11.6-15.6); WHITE BLOOD COUNT 8.7 K/mm3 (4.0-10.0)
[2017-05-14] MEDS ORDERED: INSULIN (NOVOLOG) ASPART 100 UNITS/ML 10ML VIAL ONE (07:15)
[2017-05-14 07:35] LABS: ALBUMIN 2.7 g/dl (3.4-5.0); ANION GAP 8 (8-16); BILIRUBIN,TOTAL 0.5 mg/dL (0.2-1.0); CALCIUM 8.6 mg/dL (8.5-10.1); CO2 28 mmol/L (21-32); CREATININE 0.9 mg/dL (0.55-1.02); GLUCOSE,RANDOM 106 mg/dL (74-106); SGOT/AST 19 U/L (15-37); SGPT/ALT 19 U/L (12-78); TOT PROT 6.9 g/dl (6.4-8.2)
[2017-05-14 07:36] LABS: ALK PHOS 56 U/L (45-117)
--- NOTE | 2017-05-14 08:06 | PN ---
Progress Note (short form) - Note Progress Note: Pt sitting up comfortably. Notes mild hand discomfort. AF VSS LUE swelling is improved, now mild mild erythema minimal discomfort with ROM sens int to LT 2+ rad pulse motor intact a/p: L hand cellulitis -advised that pt is improving but should continue IV abx -abx per -may follow up as outpt Problem List - Problems (1) Cellulitis of hand, left Code(s): L03.114 - CELLULITIS OF LEFT UPPER LIMB
--- NOTE | 2017-05-14 08:42 | PN ---
Progress Note (short form) - Note Progress Note: Subjective: The patient was seen and examined at the bedside, she reports feeling good today Current Medications Generic Name Dose Route Start Last Admin Trade Name Rosalina PRN Reason Stop Dose Admin Acetaminophen 650 mg 05/11/17 14:58 05/11/17 15:30 Tylenol - PO 650 mg Q4H PRN Administration FEVER OR PAIN Amlodipine Besylate 5 mg 05/11/17 10:00 05/13/17 12:16 Norvasc - PO 5 mg DAILY SARAHY Administration Artificial Tears 1 drop 05/13/17 17:40 Artificial Tears OU BID PRN DRY EYES Aspirin 81 mg 05/11/17 10:00 05/13/17 12:16 Asa - PO 81 mg DAILY SARAHY Administration Atorvastatin Calcium 20 mg 05/11/17 10:00 05/13/17 12:16 Lipitor - PO 20 mg DAILY SARAHY Administration Cyanocobalamin 1,000 mcg 05/11/17 10:00 05/13/17 12:16 Vitamin B12 - PO 1,000 mcg DAILY SARAHY Administration Donepezil HCl 10 mg 05/11/17 10:00 05/13/17 12:16 Aricept - PO 10 mg DAILY SARAHY Administration Heparin Sodium (Porcine) 5,000 unit 05/12/17 10:00 05/13/17 21:41 Heparin - SQ 5,000 unit BID SARAHY Administration Piperacillin Sod/Tazobactam 50 mls @ 100 mls/hr 05/12/17 11:30 05/14/17 01:23 Sod 3.375 gm/ Dextrose IVPB 100 mls/hr Q8H-IV SARAHY Administration Protocol Insulin Aspart 1 vial 05/11/17 16:30 05/14/17 07:02 Novolog Vial Sliding Scale - SQ Not Given ACHS [facility] Protocol Levothyroxine Sodium 88 mcg 05/12/17 07:00 05/14/17 07:02 Synthroid - PO 88 mcg Q2D@0700 SARAHY Administration Levothyroxine Sodium 100 mcg 05/11/17 07:00 05/13/17 06:26 Synthroid - PO 100 mcg Q2D@0700 SARAHY Administration Non-Formulary Medication 300 mg 05/11/17 11:30 05/13/17 16:32 Uridine [Uridine] PO Not Given DAILY SARAHY Propranolol HCl 60 mg 05/12/17 10:00 05/13/17 12:16 Inderal La - PO 60 mg DAILY SARAHY Administration Objective: Vital Signs Period Temp Pulse Resp BP Sys/Zavala Pulse Ox Last 24 Hr 97.8 F-98.7 F 65-86 18-18 111-136/58-83 98-98 Physical Exam: General: Confused, NAD Lungs: CTA bilaterally Heart: RRR, S1S2 Abd: Soft, non-tender, non-distended. Normoactive bowel sounds Ext: B/l upper extremity tremor. No erythema or edema noted Neuro: No focal deficits CBCD WBC 8.7 K/mm3 (4.0-10.0) 05/14/17 06:00 RBC 3.94 M/mm3 (3.60-5.2) 05/14/17 06:00 Hgb 11.6 GM/dL (10.7-15.3) 05/14/17 06:00 Hct 34.5 % (32.4-45.2) 05/14/17 06:00 MCV 87.5 fl (80-96) 05/14/17 06:00 MCHC 33.7 g/dl (32.0-36.0) 05/14/17 06:00 RDW 15.1 % (11.6-15.6) 05/14/17 06:00 Plt Count 266 K/MM3 (134-434) 05/14/17 06:00 MPV 8.5 fl (7.5-11.1) 05/14/17 06:00 CMP Sodium 137 mmol/L (136-145) 05/14/17 06:00 Potassium 4.1 mmol/L (3.5-5.1) 05/14/17 06:00 Chloride 101 mmol/L (98-107) 05/14/17 06:00 Carbon Dioxide 28 mmol/L (21-32) 05/14/17 06:00 Anion Gap 8 (8-16) 05/14/17 06:00 BUN 16 mg/dL (7-18) 05/14/17 06:00 Creatinine 0.9 mg/dL (0.55-1.02) 05/14/17 06:00 Creat Clearance w eGFR 59.37 (>60) 05/14/17 06:00 Random Glucose 106 mg/dL (74-106) 05/14/17 06:00 Calcium 8.6 mg/dL (8.5-10.1) 05/14/17 06:00 Total Bilirubin 0.5 mg/dL (0.2-1.0) 05/14/17 06:00 AST 19 U/L (15-37) D 05/14/17 06:00 ALT 19 U/L (12-78) D 05/14/17 06:00 Alkaline Phosphatase 56 U/L (45-117) 05/14/17 06:00 Total Protein 6.9 g/dl (6.4-8.2) 05/14/17 06:00 Albumin 2.7 g/dl (3.4-5.0) L 05/14/17 06:00 Microbiology 05/10/17 17:30 Blood - Peripheral Venous Blood Culture - Preliminary NO GROWTH OBTAINED AFTER 72 HOURS, INCUBATION TO CONTINUE FOR 2 DAYS. 05/10/17 17:30 Blood - Peripheral Venous Blood Culture - Preliminary NO GROWTH OBTAINED AFTER 72 HOURS, INCUBATION TO CONTINUE FOR 2 DAYS. Assessment: This is an 87 year old female with PMHx of dementia, DM, HTN, hyperlipidemia, osteoporosis, who presented to the ED with fever and left hand swelling x2 days. Plan: 1) ID: Left upper extremity cellulitis - LUE doppler negative for DVT - Left arm x-ray with no acute pathology. Negative for gas - Continue Zosyn, hopefully switch to oral abx today - Keep left arm elevated - Appreciate ID consult - Appreciate ortho consult 2) Cardiology: HTN - Controlled - Continue Propranolol - Continue Norvasc - Hold BP meds if SBP <110 Hyperlipidemia - Continue Lipitor 3) Endocrine: Hypothyroidism - Continue Synthroid DM - BGM ACHS - ISS ACHS 4) Psych: Dementia - Continue Aricept - Continue Cyanocobalamin 5) F/E/N: - Monitor electrolytes - Sodium controlled, diabetic diet 6) Prophylaxis: - PT - Heparin 5,000u sq bid 7) Dispo: - Requires continued inpatient care CODE STATUS: FULL CODE Visit type - Emergency Visit Emergency Visit: Yes ED Registration Date: 05/10/17 Care time: The patient presented to the Emergency Department on the above date and was hospitalized for further evaluation of their emergent condition. - New Patient This patient is new to me today: No - Critical Care Critical Care patient: No
[2017-05-14] MEDS ORDERED: PIPERACILLIN/TAZOBACTAM 3.375 GM VIAL IVPB ONE (09:58)
[2017-05-14] MEDS ORDERED: DEXTROSE 5%-WATER - 50 ML IVPB ONE (09:58)
[2017-05-14] MEDS: ASPIRIN 81 MG CHEWABLE TABLETS PO SCH (10:02)
[2017-05-14] MEDS: DONEPEZIL HCL 10 MG TABLET (FP) PO SCH (10:02)
[2017-05-14] MEDS: amLODIPine BESYLATE 5 MG TABLET (FP) PO SCH (10:03)
[2017-05-14] MEDS: ATORVASTATIN CA 20 MG TABLET (FP) PO SCH (10:03)
[2017-05-14] MEDS: CYANOCOBALAMIN 1,000 MCG TABLET (FP) PO SCH (10:04)
[2017-05-14] MEDS: HEPARIN NA (PORCINE) 5,000 UNITS/ML 1ML VIAL SQ SCH (11:47)
[2017-05-14 12:05] VITALS: BP 116/73; PULSE 69; TEMP 98.1
--- NOTE | 2017-05-14 14:01 | PN ---
Progress Note, Physician History of Present Illness: patient doing very well swelling and cellulitits nearly resolved patient denies any pain minimal tenderness at the wrist joint - Current Medication List Current Medications: Active Medications Acetaminophen (Tylenol -) 650 mg PO Q4H PRN PRN Reason: FEVER OR PAIN Last Admin: 05/11/17 15:30 Dose: 650 mg Amlodipine Besylate (Norvasc -) 5 mg PO DAILY [facility] Last Admin: 05/14/17 10:03 Dose: 5 mg Artificial Tears (Artificial Tears) 1 drop OU BID PRN PRN Reason: DRY EYES Aspirin (Asa -) 81 mg PO DAILY [facility] Last Admin: 05/14/17 10:02 Dose: 81 mg Atorvastatin Calcium (Lipitor -) 20 mg PO DAILY [facility] Last Admin: 05/14/17 10:03 Dose: 20 mg Cyanocobalamin (Vitamin B12 -) 1,000 mcg PO DAILY [facility] Last Admin: 05/14/17 10:04 Dose: 1,000 mcg Donepezil HCl (Aricept -) 10 mg PO DAILY [facility] Last Admin: 05/14/17 10:02 Dose: 10 mg Heparin Sodium (Porcine) (Heparin -) 5,000 unit SQ BID [facility] Last Admin: 05/14/17 11:47 Dose: 5,000 unit Insulin Aspart (Novolog Vial Sliding Scale -) 1 vial SQ ACHS [facility] PRN Reason: Protocol Last Admin: 05/14/17 11:25 Dose: Not Given Levothyroxine Sodium (Synthroid -) 88 mcg PO Q2D@0700 [facility] Last Admin: 05/14/17 07:02 Dose: 88 mcg Levothyroxine Sodium (Synthroid -) 100 mcg PO Q2D@0700 [facility] Last Admin: 05/13/17 06:26 Dose: 100 mcg Non-Formulary Medication (Uridine [Uridine]) 300 mg PO DAILY [facility] Last Admin: 05/13/17 16:32 Dose: Not Given Propranolol HCl (Inderal La -) 60 mg PO DAILY [facility] Last Admin: 05/14/17 10:03 Dose: 60 mg - Objective Vital Signs: Vital Signs Temperature 98.1 F 05/14/17 08:20 Pulse Rate 69 05/14/17 08:20 Respiratory Rate 20 05/14/17 08:20 Blood Pressure 116/73 05/14/17 08:20 O2 Sat by Pulse Oximetry (%) 98 05/13/17 21:00 Constitutional: Yes: No Distress, Calm Cardiovascular: Yes: Regular Rate and Rhythm Respiratory: Yes: Regular, CTA Bilaterally Gastrointestinal: Yes: Normal Bowel Sounds, Soft Musculoskeletal: Yes: Other Extremities: Yes: Erythema (nearly resolved), Other Neurological: Yes: Alert, Other (dementia) Psychiatric: Yes: Other (dementia) Labs: CBC, BMP 05/14/17 06:00 05/14/17 06:00 Assessment/Plan Problem List - Problem (1) Cellulitis of hand, left Code(s): L03.114 - CELLULITIS OF LEFT UPPER LIMB (2) Swelling of joint, hand, left Code(s): M25.442 - EFFUSION, LEFT HAND (3) Dementia Code(s): F03.90 - UNSPECIFIED DEMENTIA WITHOUT BEHAVIORAL DISTURBANCE (4) HTN (hypertension) Code(s): I10 - ESSENTIAL (PRIMARY) HYPERTENSION (5) Diabetes mellitus Code(s): E11.9 - TYPE 2 DIABETES MELLITUS WITHOUT COMPLICATIONS (6) Hypothyroidism Code(s): E03.9 - HYPOTHYROIDISM, UNSPECIFIED (7) [place] (hard of hearing) Code(s): H91.90 - UNSPECIFIED HEARING LOSS, UNSPECIFIED EAR (8) Familial tremor Code(s): G25.0 - ESSENTIAL TREMOR this looks like this is a strep infection plan will stop iv abx switched to augmentin continue augmentin for 5 more days rest as per primary
--- NOTE | 2017-05-14 14:30 | DS ---
Physical Examination Vital Signs: Vital Signs Temperature 98.1 F 05/14/17 08:20 Pulse Rate 69 05/14/17 08:20 Respiratory Rate 20 05/14/17 08:20 Blood Pressure 116/73 05/14/17 08:20 O2 Sat by Pulse Oximetry (%) 98 05/13/17 21:00 Labs: CBC, BMP 05/14/17 06:00 05/14/17 06:00 Discharge Summary Reason For Visit: SWELLING 1 JOINT IN HAND Current Active Problems Cellulitis of hand, left (Acute) DVT prophylaxis (Acute) Dementia (Acute) Diabetes mellitus (Acute) Familial tremor (Acute) [place] (hard of hearing) (Acute) HTN (hypertension) (Acute) Hypothyroidism (Acute) Swelling of joint, hand, left (Acute) Condition: Improved - Instructions Diet, Activity, Other Instructions: Please return to the ED with new, persistent, or worsening symptoms. Please follow-up with providers as indicated Keep left arm elevated when sitting or laying. Referrals: Margo Miller MD [Primary Care Provider] - 1 Week Delisa Hill MD [Staff Physician] - 1 Week (Please follow-up with infectious disease in 1 week to assure resolution of your cellulitis) Disposition: VNS/HOME HEALTH CARE - Home Medications Comprehensive Discharge Medication List: Ambulatory Orders Amlodipine Besylate [Norvasc -] 5 mg PO DAILY 05/10/17 Aspirin [ASA -] 81 mg PO DAILY 05/10/17 Atorvastatin Ca [Lipitor] 20 mg PO DAILY 05/10/17 Cholecalciferol (Vitamin D3) [D3-2000] 1 tab PO DAILY 05/10/17 Cyanocobalamin [Vitamin B12 -] 1 tab PO DAILY 05/10/17 Donepezil HCl [Aricept -] 10 mg PO DAILY 05/10/17 Levothyroxine Sodium [Synthroid] 88 mcg PO Q48H 05/10/17 Levothyroxine [Synthroid -] 100 mcg PO Q48H 05/10/17 Metformin Xr [Glucophage Xr -] 1 tab PO DAILY 05/10/17 Propranolol HCl 60 mg PO DAILY 05/10/17 Uridine 300 mg PO DAILY 05/10/17 Amox-Tr/K Cl [Augmentin 500-125mg Tablet -] 1 tab PO BID@0800,1730 #11 tablet Polyvinyl Alcohol [Artificial Tears] 1 drop OU BID PRN #0 ml 05/14/17
[2017-05-14] MEDS ORDERED: AMOX TR/POT CLAV 500MG/125MG TABLETS (FP) PO SCH (17:30)
== END 2017-05-14 15:16 | disposition home health service (06) | DRG 603 ==
LOC: JER 14:41 → JERBED 23:32 → J8W 05-11 00:39
PROVIDERS: ADMIT Internal Medicine; ATTEND Registered Nurse
DX: L03.114 Cellulitis of left upper limb (principal); M25.442 Effusion, left hand; F03.90 Unspecified dementia, unspecified severity, without behavioral disturbance, psychotic disturbance, mood disturbance, and anxiety; I10 Essential (primary) hypertension; E03.9 Hypothyroidism, unspecified; E11.9 Type 2 diabetes mellitus without complications; E78.5 Hyperlipidemia, unspecified; M81.0 Age-related osteoporosis without current pathological fracture
CPT/HCPCS: 36415; 73110-TC-LT; 73130-TC-LT; 80048; 80053; 84443; 84550; 85025; 85651; 86140; 87040; 93971; 97116-GP; 97161-GP; 99283-25; J1644

== ENCOUNTER 2017-07-11 12:13 | Emergency (ER) | payer OTHER, MEDICARE ==
[2017-07-11 12:22] VITALS: TEMP 98.6; BMI 25.4
--- NOTE | 2017-07-11 13:06 | PDOC ---
History of Present Illness - General Chief Complaint: Injury Stated Complaint: FALL Time Seen by Provider: 07/11/17 13:06 - History of Present Illness Initial Comments: 87 year old female with HTN, dementia (with tremor), and HLD presenting after being found down in her home for an unknown amount of time. She has a home service advisor for 12 hours a and was last seen in bed yesterday evening then was found by her aid on the living room floor earlier today. She states that she tripped and fell and wasn't down for very long, however there is the potential of poor recollection by the patient given her comorbidities and age. She denies any presyncopal sensation, palpitations, diaphoresis, or chest pain directly prior to the fall. Her main complaint is of some light left supra-orbital and left frontal scalp tenderness. States that she has a little bit dehydrated recently. Denies cough, chest pain, chest pain, nausea, vomiting, diarrhea, or urinary symptoms. 07/11/17 14:03 Past History - Past Medical History Allergies/Adverse Reactions: Allergies Allergy/AdvReac Type Severity Reaction Status Date / Time No Known Allergies Allergy Verified 07/11/17 12:19 Home Medications: Ambulatory Orders Amlodipine Besylate [Norvasc -] 5 mg PO DAILY 05/10/17 Aspirin [ASA -] 81 mg PO DAILY 05/10/17 Atorvastatin Ca [Lipitor] 20 mg PO DAILY 05/10/17 Cholecalciferol (Vitamin D3) [D3-2000] 1 tab PO DAILY 05/10/17 Cyanocobalamin [Vitamin B12 -] 1 tab PO DAILY 05/10/17 Donepezil HCl [Aricept -] 10 mg PO DAILY 05/10/17 Levothyroxine Sodium [Synthroid] 88 mcg PO Q48H 05/10/17 Levothyroxine [Synthroid -] 100 mcg PO Q48H 05/10/17 Metformin Xr [Glucophage Xr -] 1 tab PO DAILY 05/10/17 Propranolol HCl 60 mg PO DAILY 05/10/17 Uridine 300 mg PO DAILY 05/10/17 Polyvinyl Alcohol [Artificial Tears] 1 drop OU BID PRN #0 ml 05/14/17 Dementia: Yes Diabetes: Yes HTN: Yes Hypercholesterolemia: Yes - Suicide/Smoking/Psychosocial Hx Smoking History: Never smoked Hx Alcohol Use: No Drug/Substance Use Hx: No Substance Use Type: None Review of Systems - Review of Systems Constitutional: No: Chills, Diaphoresis HEENTM: No: Blurred Vision Respiratory: No: Cough, Shortness of Breath Cardiac (ROS): No: Chest Pain ABD/GI: No: Diarrhea, Nausea, Vomiting : No: Burning, Dysuria, Discharge, Incontinence Integumentary: Yes: Bruising, Change in Color, Lesions Neurological: Yes: Tremors. No: Headache, Numbness, Paresthesia *Physical Exam - Vital Signs Last Vital Signs Temp Pulse Resp BP Pulse Ox 98.6 F 73 18 104/53 99 07/11/17 12:19 07/11/17 12:19 07/11/17 12:19 07/11/17 12:19 07/11/17 12:19 - Physical Exam General Appearance: Yes: Nourished, Appropriately Dressed, Thin. No: Apparent Distress HEENT: positive: EOMI, POONAM, Normal Voice, Symmetrical. negative: Normal ENT Inspection (Dry mucous membranes. Left supraorbital echymosses and left frontal echymosses withotu bony step off or obvious bony deformity. Some slight soft tissue sweling. ) Neck: positive: Trachea midline, Normal Thyroid, Supple. negative: Tender, Rigid Respiratory/Chest: positive: Lungs Clear, Normal Breath Sounds. negative: Chest Tender, Respiratory Distress, Accessory Muscle Use Cardiovascular: positive: Regular Rhythm, Regular Rate, S1, S2. negative: Edema , Murmur Gastrointestinal/Abdominal: positive: Normal Bowel Sounds, Flat, Soft. negative : Tender Musculoskeletal: negative: Normal Inspection (Full ROM in LE and UE bilaterally without pain. Some slight tenderness to plpation over left knee at are aof erythema and echymosis. ) Extremity: positive: Normal Capillary Refill, Normal Inspection, Normal Range of Motion Integumentary: positive: Normal Color, Dry, Warm Neurologic: positive: Alert, Normal Mood/Affect. negative: Fully Oriented ( AOx2 (persona and place) She thought the year was 1984), Motor Strength 5/5 (4/ 5 UE and LE) ED Treatment Course - LABORATORY CBC & Chemistry Diagram: 07/11/17 13:45 07/11/17 13:45 Medical Decision Making - Medical Decision Making 87 year old female found down with suspected mechanical fall without intra- cranial hemorrhage, facial fracture, or obvious pathology on CXR. Still pending UA but WBC not significant. Spoke to Dr. Miller in length about disposition and she believes he patient can go home with the family if they can take care if her until they follow up in the office tomorrow. 07/11/17 16:14 Her UA was negative and she was able to ambulate with minimal difficulty. Her family will look after her tonight. 07/11/17 23:34 *DC/Admit/Observation/Transfer Diagnosis at time of Disposition: Accident due to mechanical fall without injury - Discharge Dispostion Disposition: HOME Condition at time of disposition: Improved Admit: No - Referrals Referrals: Margo Miller MD [Primary Care Provider] - - Patient Instructions Printed Discharge Instructions: DI for Hematoma (Bruise) Additional Instructions: You were seen for a fall. We did not see any sing of infection in your lungs or urine. You do not have any broken bones. You have some bruising and a hematoma over your left eye. You can use ice and Tylenol for your pain. Please follow up with Dr. Miller tomorrow.
--- NOTE | 2017-07-11 13:51 | PDOC ---
Attending Attestation - HPI HPI: 07/11/17 14:13 Patient is a 87 year old female with a significant past medical history of [place], HTN, HLD, DM, Hypothyroid, Dementia, Familial Tremors, [place], who presents to the ED s/p fall that occurred this afternoon. Patient reports walking when she tripped and fell, causing her to hit her head as she hit the floor. She reports she was immediately able to stand up and walkin after initial accident. Patient reports left frontal head pain secondary to fall. She reports right leg pain secondary to fall. Denies chest pain, SOB. Denies fever, chills. Denies loss of consciousness. Denies any other symptoms. Allergies: None Surgical history: None Social history: No smoking. No alcohol, No illicit drugs. PMD: Dr. Miller. - Physicial Exam PE: 07/11/17 14:13 GENERAL: Awake, alert, and fully oriented, in no acute distress HEAD: +5 cm by 5 cm ecchymosis. No signs of trauma EYES: PERRLA, EOMI, sclera anicteric, conjunctiva clear ENT: Auricles normal inspection, hearing grossly normal, nares patent, oropharynx clear without exudates. Moist mucosa NECK: Normal ROM, supple, no lymphadenopathy, JVD, or masses LUNGS: Breath sounds equal, clear to auscultation bilaterally. No wheezes, and no crackles HEART: Regular rate and rhythm, normal S1 and S2, no murmurs, rubs or gallops ABDOMEN: Soft, nontender, normoactive bowel sounds. No guarding, no rebound. No masses EXTREMITIES: +Mild posterior distal thigh pain. +Full right knee ROM. +Various valgous negative. +Hip full ROM. +pelvis stable with no tenderness. Normal range of motion, no edema. No clubbing or cyanosis. No cords, erythema, or tenderness NEUROLOGICAL: Cranial nerves II through XII grossly intact. Normal speech, normal gait SKIN: Warm, Dry, normal turgor, no rashes or lesions noted. - Medical Decision Making 07/11/17 14:13 Documentation prepared by Jerod Dailey, acting as medical service technician for Kj Woods MD. <Jerod Dailey - Last Filed: 07/11/17 14:12> - Resident Resident Name: Tameka Rosas - ED Attending Attestation I have performed the following: I have examined & evaluated the patient, The case was reviewed & discussed with the resident, I agree w/resident's findings & plan, Exceptions are as noted - Medical Decision Making 07/11/17 14:33 A portion of this note was written by my scribe, under my supervision. Vital Signs Temp Pulse Resp BP Pulse Ox 98.6 F 73 18 104/53 99 07/11/17 12:19 07/11/17 12:19 07/11/17 12:19 07/11/17 12:19 07/11/17 12:19 87 year old female c/ pmh dementia, HTN, DM, HLD, tremors, ?parkinson's, on aspirin p/w found on ground. The pt has daytime home health aide but none at night. Pt was left home alone, and in the morning, found by [employer]. Pt reports she had tripped and fell but not great historian. Sustained large ecchymosis over left forehead. Unclear if patient had syncope or fell. Head CT, facial CT, and ct c-spine. Labs including trop. UA ECG 07/11/17 16:33 CBC, BMP 07/11/17 13:45 07/11/17 13:45 CMP Sodium 135 mmol/L (136-145) L 07/11/17 13:45 Potassium 4.4 mmol/L (3.5-5.1) 07/11/17 13:45 Chloride 98 mmol/L (98-107) 07/11/17 13:45 Carbon Dioxide 25 mmol/L (21-32) 07/11/17 13:45 Anion Gap 12 (8-16) 07/11/17 13:45 BUN 24 mg/dL (7-18) H D 07/11/17 13:45 Creatinine 1.1 mg/dL (0.55-1.02) H D 07/11/17 13:45 Creat Clearance w eGFR 47.09 (>60) 07/11/17 13:45 Random Glucose 96 mg/dL (74-106) 07/11/17 13:45 Calcium 8.7 mg/dL (8.5-10.1) 07/11/17 13:45 Magnesium 2.0 mg/dL (1.8-2.4) 07/11/17 13:45 Total Bilirubin 0.6 mg/dL (0.2-1.0) 07/11/17 13:45 AST 31 U/L (15-37) D 07/11/17 13:45 ALT 17 U/L (12-78) 07/11/17 13:45 Alkaline Phosphatase 63 U/L (45-117) 07/11/17 13:45 Creatine Kinase 657 IU/L (26-192) H 07/11/17 13:45 Creatine Kinase Index 0.8 % (0.0-5.0) 07/11/17 13:45 CK-MB (CK-2) 5.393 ng/mL (0.5-3.6) H 07/11/17 13:45 Troponin I < 0.02 ng/ml (0.00-0.05) 07/11/17 13:45 Total Protein 7.6 g/dl (6.4-8.2) 07/11/17 13:45 Albumin 2.8 g/dl (3.4-5.0) L 07/11/17 13:45 CT and xray reviewed. No acute findings. UA Pending. As per Dr. Mello, she prefers that the patient be discharged home and follow up tomorrow. The pt's son prefers that she goes home and feels safe there. He states that he will attempt to arrange someone to stay with her tonight. <Kj Woods - Last Filed: 07/11/17 16:34> Heart Score/ECG Review #1 ECG reviewed & interpreted by me at: 15:20 07/11/17 15:43 NSR 62, no std/glenna, LVH c/ TWI I, avL, V3-V6, QTC 434 msec <Kj Woods - Last Filed: 07/11/17 16:34>
[2017-07-11 14:29] LABS: BASOPHIL 0.7 % (0-2.0); EOSINOPHIL 0.3 % (0-4.5); MCH 28.3 pg (25.7-33.7); MCHC 32.4 g/dl (32.0-36.0); MEAN CELL VOLUME 87.5 fl (80-96); MEAN PLT VOLUME 8.9 fl (7.5-11.1); PLATELET COUNT 253 K/MM3 (134-434); RDW 15.6 % (11.6-15.6); WHITE BLOOD COUNT 13.2 K/mm3 (4.0-10.0)
[2017-07-11 14:55] LABS: CALCIUM 8.7 mg/dL (8.5-10.1)
[2017-07-11 15:06] LABS: ALBUMIN 2.8 g/dl (3.4-5.0); ANION GAP 12 (8-16); BILIRUBIN,TOTAL 0.6 mg/dL (0.2-1.0); CO2 25 mmol/L (21-32); CREATININE 1.1 mg/dL (0.55-1.02); GLUCOSE,RANDOM 96 mg/dL (74-106); TOT PROT 7.6 g/dl (6.4-8.2)
[2017-07-11 15:08] LABS: ALK PHOS 63 U/L (45-117); CPK 657 IU/L (26-192); SGPT/ALT 17 U/L (12-78); TROPONIN I < 0.02 ng/ml (0.00-0.05)
[2017-07-11 15:10] LABS: SGOT/AST 31 U/L (15-37)
[2017-07-11 17:43] LABS: URINE APPEARANCE SLCLOUDY; URINE BILIRUBIN NEGATIVE (NEGATIVE); URINE BLOOD NEGATIVE (NEGATIVE); URINE COLOR YELLOW; URINE GLUCOSE (UA) NEGATIVE (NEGATIVE); URINE KETONE NEGATIVE (NEGATIVE); URINE NITRITE NEGATIVE (NEGATIVE); URINE PROTEIN NEGATIVE (NEGATIVE); URINE UROBILINOGEN NEGATIVE mg/dL (0.2-1.0)
[2017-07-11 18:24] VITALS: BP 112/61; PULSE 75
[2017-07-11 22:15] LABS: URINE LEUK ESTERASE 1+ (NEGATIVE)
--- NOTE | 2017-07-12 19:17 | EKG ---
Test Reason : Blood Pressure : / mmHG Vent. Rate : 062 BPM Atrial Rate : 062 BPM P-R Int : 180 ms QRS Dur : 096 ms QT Int : 428 ms P-R-T Axes : 067 -21 162 degrees QTc Int : 434 ms NORMAL SINUS RHYTHM VOLTAGE CRITERIA FOR LEFT VENTRICULAR HYPERTROPHY P[ROLONGED QTC ABNORMAL ECG NO PREVIOUS ECGS AVAILABLE CLINICAL CORRELATION IS RECOMMENDED AND FOLLOW UP TRACING Confirmed by DEANN PEREZ MD ([id number]) on 07/12/2017 7:16:57 PM Referred By: Confirmed By:DEANN PEREZ MD
== END 2017-07-11 18:56 | disposition home or self-care (01) ==
LOC: JER 12:13
DX: Z04.3 Encounter for examination and observation following other accident (principal); W18.39XA Other fall on same level, initial encounter; Y93.89 Activity, other specified; Y92.008 Other place in unspecified non-institutional (private) residence as the place of occurrence of the external cause; E78.5 Hyperlipidemia, unspecified; I10 Essential (primary) hypertension; F03.90 Unspecified dementia, unspecified severity, without behavioral disturbance, psychotic disturbance, mood disturbance, and anxiety; R25.1 Tremor, unspecified
CPT/HCPCS: 36415; 70450-TC; 70486-TC; 71010-TC; 72125-TC; 80053; 81003; 81015; 82553; 83735; 84443; 84484; 85025; 87086; 93005; 93010; 99282-25

== ENCOUNTER 2017-09-28 16:44 | Emergency (ER) | payer OTHER, MEDICARE ==
[2017-09-28 17:06] VITALS: BP 121/63; PULSE 55; TEMP 98; BMI 24.4
--- NOTE | 2017-09-28 17:38 | PDOC ---
History of Present Illness - General Chief Complaint: Edema Stated Complaint: SWOLLEN LEFT FOOT/COUGH Time Seen by Provider: 09/28/17 17:11 History Source: Patient Exam Limitations: No Limitations - History of Present Illness Initial Comments: 09/28/17 17:48 Daughter and son here with mother for reevaluation of right ankle sprain. Have come urgent care with CD of right ankle x-ray. Were told there was no fracture but may be reevaluated and emergency department with hopes of having further studies and orthopedic evaluation here. Incident occurred approximately 3 days ago, have not had any treatment, no ice or elevation. Family was concerned about swelling and ecchymoses. Patient is pleasantly demented and unable to recount events. Taking baby aspirin daily 09/28/17 17:50 Occurred: reports: other (3 days ) Severity: reports: moderate Method of Injury: Yes: fall Modifying Factors: improves with: None Associated Symptoms (Fall): denies symptoms Past History - Travel Traveled outside of the country in the last 30 days: No Close contact w/someone who was outside of country & ill: No - Past Medical History Allergies/Adverse Reactions: Allergies Allergy/AdvReac Type Severity Reaction Status Date / Time No Known Allergies Allergy Verified 09/28/17 16:57 Home Medications: Ambulatory Orders Amlodipine Besylate [Norvasc -] 5 mg PO DAILY 05/10/17 Aspirin [ASA -] 81 mg PO DAILY 05/10/17 Atorvastatin Ca [Lipitor] 20 mg PO DAILY 05/10/17 Cholecalciferol (Vitamin D3) [D3-2000] 1 tab PO DAILY 05/10/17 Cyanocobalamin [Vitamin B12 -] 1 tab PO DAILY 05/10/17 Donepezil HCl [Aricept -] 10 mg PO DAILY 05/10/17 Levothyroxine Sodium [Synthroid] 88 mcg PO Q48H 05/10/17 Levothyroxine [Synthroid -] 100 mcg PO Q48H 05/10/17 Metformin Xr [Glucophage Xr -] 1 tab PO DAILY 05/10/17 Propranolol HCl 60 mg PO DAILY 05/10/17 Uridine 300 mg PO DAILY 05/10/17 Polyvinyl Alcohol [Artificial Tears] 1 drop OU BID PRN #0 ml 05/14/17 COPD: No Dementia: Yes Diabetes: Yes HTN: Yes Hypercholesterolemia: Yes Thyroid Disease: Yes (hypo) Other medical history: hard of hearing - Immunization History Immunization Up to Date: Yes - Suicide/Smoking/Psychosocial Hx Smoking History: Never smoked Hx Alcohol Use: No Drug/Substance Use Hx: No Substance Use Type: None Review of Systems - Review of Systems Able to Perform ROS?: Yes Is the patient limited Estonian proficient: Yes Constitutional: Yes: Symptoms Reported, See HPI, Malaise HEENTM: Yes: See HPI, Nose Congestion. No: Symptoms Reported Respiratory: Yes: Symptoms reported (daughter who is a physician/psychiatrist started/prescribed azithromycin 2 days ago and has had 2 days dose), See HPI, Cough. No: Wheezing Musculoskeletal: Yes: Symptoms Reported, See HPI, Joint Pain, Joint Swelling, Joint Stiffness Integumentary: Yes: Symptoms Reported, See HPI, Bruising Neurological: Yes: Symptoms reported, See HPI All Other Systems: Reviewed and Negative *Physical Exam - Vital Signs Last Vital Signs Temp Pulse Resp BP Pulse Ox 98.0 F 55 L 20 121/63 97 09/28/17 16:57 09/28/17 16:57 09/28/17 16:57 09/28/17 16:57 09/28/17 16:57 - Physical Exam General Appearance: Yes: Nourished, Appropriately Dressed, Apparent Distress, Mild Distress HEENT: positive: POONAM, Normal ENT Inspection, TMs Normal, Pharynx Normal Neck: positive: Supple. negative: Tender Musculoskeletal: positive: Normal Inspection, Decreased Range of Motion (due to pain and swelling , has no true point tenderness to medial or lateral malleolus however has reproduced pain fifth metatarsal and right midfoot. Ecchymoses and swelling significant however sensation intact to toes.) Extremity: positive: Normal Capillary Refill, Swelling. negative: Normal Inspection, Normal Range of Motion, Tender Integumentary: positive: Warm, Ecchymosis, Bruising. 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 negative: Fully Oriented Procedures - Splinting Splint Location: Right: Ankle (barry wrap) Pre-Proc Neuro Vasc Exam: normal ED Treatment Course - RADIOLOGY Radiology Studies Ordered: Category Date Time Status ANKLE & FOOT-LEFT* [RAD] Stat Radiology 09/28/17 17:12 Ordered Progress Note - Progress Note Progress Note: Small avulsion fracture noted to the lateral aspect of the talus bone/ questionable fifth metatarsal injury. Barry wrap and cast shoe applied prescription given for Walker to assist in ambulance highly elevated with ice packs to help avoid further swelling and ecchymoses. Patient takes daily aspirin which is probable cause of significant ecchymoses. Discussed azithromycin and its effectiveness for upper respiratory illnesses versus viral illnesses. Encouraged to continue Zithromax and follow-up with her PMD on Friday or Friday. given Dr Quintero's office number for follow-up for orthopedist *DC/Admit/Observation/Transfer Diagnosis at time of Disposition: Right ankle sprain Qualifiers: Encounter type: initial encounter Involved ligament of ankle: unspecified ligament Qualified Code(s): S93.401A - Sprain of unspecified ligament of right ankle, initial encounter - Discharge Dispostion Disposition: HOME Condition at time of disposition: Stable Admit: No - Referrals Referrals: Margo Miller MD [Primary Care Provider] - Marco Quintero MD [Staff Physician] - - Patient Instructions Printed Discharge Instructions: DI for Ankle Sprain Additional Instructions: Rest, ice to area on and off for 15 minutes 4-6 times a day Avoid heavy lifting or exercise until pain and swelling is resolved or until further directed Keep area highly elevated to reduce swelling Use splints/Barry wrap as directed Followup with orthopedist in one to 2 days if not improving, if significantly improved may wait one week for followup with orthopedist May use ibuprofen 2-200 mg tablets every 6 hours as needed for pain - Post Discharge Activity
== END 2017-09-28 17:58 | disposition home or self-care (01) ==
LOC: JERFT 16:44
DX: S93.402A Sprain of unspecified ligament of left ankle, initial encounter (principal); W19.XXXA Unspecified fall, initial encounter; Y93.89 Activity, other specified; Y92.89 Other specified places as the place of occurrence of the external cause; Y99.8 Other external cause status; F03.90 Unspecified dementia, unspecified severity, without behavioral disturbance, psychotic disturbance, mood disturbance, and anxiety; E11.9 Type 2 diabetes mellitus without complications; Z79.84 Long term (current) use of oral hypoglycemic drugs; E78.00 Pure hypercholesterolemia, unspecified; E03.9 Hypothyroidism, unspecified
CPT/HCPCS: 99281-25

== ENCOUNTER 2019-02-06 21:19 | Inpatient (IN) | payer OTHER, MEDICARE ==
--- NOTE | 2019-02-06 21:29 | PDOC ---
History of Present Illness - General Stated Complaint: POSSIBLE STROKE Time Seen by Provider: 02/06/19 21:19 - History of Present Illness Initial Comments: 02/06/19 22:45 The patient is an 89 year old female with a history of HTN, HLD, DM, Dementia who presents for evaluation of possible stroke. The patient is accompanied by family who assist in providing the history. They note that they last saw the patient normal 1 day ago 02/05/19 at around 5pm. They noted that the patient had a facial droop today around 12:30 but initially believed the patient to have a al's palsy. Later tonight, the patient began to tell the aid that she thought "she was going to tonight" and that she need to go to the hospital prompting her presentation to the ED for further evaluation. ROS is unobtainable due to the patient's dementia. tPA Exclusion checklist 3-4.5h - Time Elapsed Date last known well: 02/05/19 Time last known well: 17:00 Elaspsed time: 1 Day(s) and 6 Hour(s) and 42 Minutes - Thrombolytic Therapy Candidate Is patient eligible for thrombolytic therapy: No - Relative Exclusion Criteria 3-4.5 hr Stroke severity too mild: Yes - Add'l Relative Exclusion 3-4.5 hr Age > 80: Yes - Ineligibility reason(s) Reasons No tPA given: Outside of window - delayed arrival NIH Stroke Scale - Last Known Well Date/Time & Onset Date Last Known Well: 02/05/19 Time Last Known Well: 17:00 - Initial Evaluation Level of consciousness: Alert Ask patient the month and their age: Answers one correctly Ask patient to open & close eyes; make fist and let go: Obeys both correctly Best gaze (horizontal eye movement): Normal Visual field testing: No visual field loss Facial paresis (Show teeth/raise eyebrows/close eyes tight): Minor paralysis ( flattened nasolabial fold, asymmetry on smiling) Motor Function: Left Arm: Normal Motor Function: Right Arm: Normal (extends arm 90 (or 45) degrees for 10 seconds without drift Motor Function: Left Leg: Normal (extends leg 30 degrees for 5 seconds without drift) Motor Function: Right Leg: Normal (extends leg 30 degrees for 5 seconds without drift) Limb Ataxia: No ataxia Sensory(Use pinprick test arms,legs,trunk,face/side to side): Normal Best language (Describe picture, name items, read sentences): No Aphasia Dysarthria (read several words): Mild to moderate slurring of words Extinction and Inattention: No abnormality - Total Score NIH Stroke Scale Score: 3 Past History - Past Medical History Allergies/Adverse Reactions: Allergies Allergy/AdvReac Type Severity Reaction Status Date / Time No Known Allergies Allergy Verified 09/28/17 16:57 Home Medications: Ambulatory Orders Amlodipine Besylate [Norvasc -] 5 mg PO DAILY 05/10/17 Aspirin [ASA -] 81 mg PO DAILY 05/10/17 Atorvastatin Ca [Lipitor] 20 mg PO DAILY 05/10/17 Cholecalciferol (Vitamin D3) [D3-2000] 1 tab PO DAILY 05/10/17 Cyanocobalamin [Vitamin B12 -] 1 tab PO DAILY 05/10/17 Donepezil HCl [Aricept -] 10 mg PO DAILY 05/10/17 Levothyroxine Sodium [Synthroid] 88 mcg PO Q48H 05/10/17 Levothyroxine [Synthroid -] 100 mcg PO Q48H 05/10/17 Propranolol HCl 60 mg PO DAILY 05/10/17 Uridine 300 mg PO DAILY 05/10/17 metFORMIN XR [Glucophage Xr -] 1 tab PO DAILY 05/10/17 Polyvinyl Alcohol [Artificial Tears] 1 drop OU BID PRN #0 ml 05/14/17 COPD: No Dementia: Yes Diabetes: Yes HTN: Yes Hypercholesterolemia: Yes Thyroid Disease: Yes (hypo) - Immunization History Immunization Up to Date: Yes - Suicide/Smoking/Psychosocial Hx Smoking History: Never smoked Hx Alcohol Use: No Drug/Substance Use Hx: No Substance Use Type: None Review of Systems - Review of Systems Able to Perform ROS?: No (Dementia) *Physical Exam - Physical Exam Comments: 02/06/19 22:49 General Appearance: Nourished. No Apparent Distress HEENT: EOMI, POONAM. No Pharyngeal Erythema, Tonsillar Exudate, Tonsillar Erythema Neck: No Cervical Lymphadenopathy Respiratory/Chest: Lungs Clear, Normal Breath Sounds. No Crackles, Rales, Rhonchi, Wheezing Cardiovascular: Regular Rhythm, Regular Rate. No Murmur, Gallops, Rubs Gastrointestinal/Abdominal: Normal Bowel Sounds, Soft. No Guarding, Rebound, Tenderness Musculoskeletal: No CVA Tenderness Extremity: Normal Capillary Refill Integumentary: Normal Color, Dry, Warm Neurologic: Left sided facial droop noted with slurred speech, Oriented x1, Alert, Normal Mood/Affect, Normal Response, Motor Strength 5/5. ED Treatment Course - LABORATORY CBC & Chemistry Diagram: 02/06/19 22:01 02/06/19 22:01 - RADIOLOGY Radiology Studies Ordered: Category Date Time Status HEAD CT (STROKE) [CT] Stat CT Scan 02/06/19 21:19 Ordered CHEST X-RAY PORTABLE* [RAD] Stat Radiology 02/06/19 21:20 Ordered Medical Decision Making - Medical Decision Making 02/06/19 22:51 The patient is an 89 year old female with a history of HTN, HLD, DM, Dementia who presents for evaluation of possible stroke. Differential includes but is not limited to: TIA, CVA, UTI, Infectious, Metabolic Derangement. Given the patient's history and physical exam, we will obtain a cbc, cmp, troponin, lipid profile, ua, urine culture, chest plain film, head ct, ekg to evaluate further. We will continue to monitor and reassess while here in the ED. The patient will likely require admission for further management and monitoring. 02/06/19 23:43 CBC demonstrates a known anemia with a hgb of 9.4. CMP, troponin are unremarkable. Chest plain film demonstrates no acute process. Head CT is unremarkable as preliminarily read by our salmon troll fisher radiologist. The patient is still pending UA. She will require admission for further monitoring given her new facial droop and worsening confusion. *DC/Admit/Observation/Transfer Diagnosis at time of Disposition: TIA (transient ischemic attack) Altered mental status, unspecified Qualifiers: Altered mental status type: unspecified Qualified Code(s): R41.82 - Altered mental status, unspecified - Discharge Dispostion Condition at time of disposition: Stable Decision to Admit order: Yes - Referrals Referrals: ON STAFF,NOT [Primary Care Provider] - - Patient Instructions - Post Discharge Activity
[2019-02-06] MEDS ORDERED: SODIUM CHLORIDE 1,000 ML IV SCH (21:30)
[2019-02-06 21:58] VITALS: BMI 20.7
[2019-02-06 22:13] LABS: BASO % 0.5 % (0-2.0); EOS % 2.7 % (0-4.5); HEMATOCRIT 28.8 % (32.4-45.2); HEMOGLOBIN 9.4 GM/dL (10.7-15.3); LYMPH % 22.1 % (8-40); MCH 29.2 pg (25.7-33.7); MCHC 32.8 g/dl (32.0-36.0); MEAN CELL VOLUME 89.1 fl (80-96); MEAN PLT VOLUME 7.1 fl (7.5-11.1); NEUT % 67.7 % (42.8-82.8); PLATELET COUNT 361 K/MM3 (134-434); RBC 3.23 M/mm3 (3.60-5.2); RDW 16.3 % (11.6-15.6); WHITE BLOOD COUNT 7.6 K/mm3 (4.0-10.0)
[2019-02-06 22:25] LABS: INR 1.06 (0.83-1.09); PROTHROMBIN TIME (PATIENT) 12.5 SEC (9.7-13.0)
[2019-02-06 22:46] LABS: ALBUMIN 2.2 g/dl (3.4-5.0); ALK PHOS 53 U/L (45-117); ANION GAP 5 MMOL/L (8-16); BILIRUBIN,TOTAL 0.2 mg/dL (0.2-1); BLOOD UREA NITROGEN 25 mg/dL (7-18); CALCIUM 9.1 mg/dL (8.5-10.1); CHLORIDE 104 mmol/L (98-107); CHOLESTEROL 136 mg/dL (50-200); CO2 29 mmol/L (21-32); GLUCOSE,RANDOM 87 mg/dL (74-106); HDL CHOLESTEROL 53 mg/dL (40-60); POTASSIUM 4.1 mmol/L (3.5-5.1); SGOT/AST 11 U/L (15-37); SGPT/ALT 8 U/L (13-61); SODIUM 137 mmol/L (136-145); TOT PROT 7.8 g/dl (6.4-8.2); TRIGLYCERIDES 130 mg/dL (0-150)
--- NOTE | 2019-02-06 23:51 | PN ---
Teaching Attending Note Name of Resident: Kellie Fishman ATTENDING PHYSICIAN STATEMENT I saw and evaluated the patient. I reviewed the resident's note and discussed the case with the resident. I agree with the resident's findings and plan as documented. SUBJECTIVE: Seen and examined; please refer to resident note for further historical documentation. Briefly, this is a 89 y/o female presenting to the ER with acute on chronic confusion with L-sided facial droop and dysarthria; I am informed by ER resident that NIHSS was 3 on arrival. She cannot provide a history and is requesting to get out of bed repeatedly and kicking. Her aid accompanies her. Last known well yesterday; today is her birthday so her family came to visit her and around 1230 noted the aformentioned symptoms. Facial droop is slightly improved when I saw her; she is able to follow simple commands but is obviously confused and asking to go home. She is hemodynamically stable and afebrile. It is frankly difficult to get her to do a full NIHSS. Doesn't seem to have lee dysarthria but poor thought content with poor progression and limited insight. She will be brought to the floor on the medicine service. Neurology has been called by ER and I am informed that they are pending a call back. I am informed that she is compliant with all of her medications. 10 sys ROS done and negative aside from HPI PMH, PSH, FH, SH reviewed Home Medications Medication Instructions Recorded Amlodipine Besylate [Norvasc -] 5 mg PO DAILY 05/10/17 Aspirin [ASA -] 81 mg PO DAILY 05/10/17 Atorvastatin Ca [Lipitor] 20 mg PO DAILY 05/10/17 Cholecalciferol (Vitamin D3) 1 tab PO DAILY 05/10/17 [D3-2000] Cyanocobalamin [Vitamin B12 -] 1 tab PO DAILY 05/10/17 Donepezil HCl [Aricept -] 10 mg PO DAILY 05/10/17 Levothyroxine Sodium [Synthroid] 88 mcg PO Q48H 05/10/17 Levothyroxine [Synthroid -] 100 mcg PO Q48H 05/10/17 Propranolol HCl 60 mg PO DAILY 05/10/17 Uridine 300 mg PO DAILY 05/10/17 metFORMIN XR [Glucophage Xr -] 1 tab PO DAILY 05/10/17 Polyvinyl Alcohol [Artificial 1 drop OU BID PRN #0 ml 05/14/17 Tears] OBJECTIVE: VS, labs, imaging reviewed NAD, AAOx1, resting comfortably in bed, obviously confused NC AT EOMI PERRLA; perhaps a slight L-facial assymetry present but not obvious. Can follow simple commands. Not having difficulty pronouncing words, no frankly garbled or slurred words, moves all 4 extremities and apparent intact sensorium and reflexes over all extremities. RRR s1/2 no mgr Lungs CTAB but with poor respiratory effort, w/ sym exp NT ND +BS Slightly agitated (redirecting with nursing), poor insight, lacking judgement. ASSESSMENT AND PLAN: Patient presents to the ER with increasing confusion and potential CVA sx; neurology has been consulted (appreciate expert opinion). Monitoring on the medicine service on telemetry. 1) AMS with ?TIA -Frequent neuro checks, seizure precautions. Monitor on telemetry on the medicine service with neurology consult -Continue ASA, increasing statin from 20 to 40 and checking lipids, tsh, A1c, b12, RPR -PT/OT/ST -Followup echo, MRI, carotid dopplers. -Monitor for . Continuine aricept, etc. for now. 2) Hx HTN -Reconcile and continue appropriate home medications. 3) Hypothyroidism -Reconcile and continue home medications. 4) DM -Hold PO meds; SSI 5) Dementia -Confirm code status with family; does not have capacity, continue B12 and donepezil. Not myxedema. Has 24 hour case at home but consider need for placement. 6) Hx HLD -Continue statin
[2019-02-07] MEDS ORDERED: LACTATED RINGERS SOLUTION 1,000 ML/1,000 ML INFUS.BAG IV SCH (00:45)
--- NOTE | 2019-02-07 01:02 | HP ---
CHIEF COMPLAINT: Confusion PCP: Dr. Miller HISTORY OF PRESENT ILLNESS: 89 y/o F with PMHx of HTN, HLD, DM, Dementia, Hypothyroidism, Osteoporosis presents after an episode of facial droop and increasing confusion. Patient is confused during my examination, thus the majority of the history was provided by chart review and by the TUBE FILLER present at bedside. Patient was found to be in her normal state of health on 02/05 however around Noon the following day, her family member noticed a slight left facial droop. They also noticed increasing confusion at which point the TUBE FILLER was prompted to visit the ED. As per EMR, patients NIHSS was 3 upon arrival. Her facial droop has improved however patient remains confused, continuously trying to get out of the bed requesting to go home, and slightly combative. Patient does not have dysarthria but remains disoriented. Home health aid endorse medication compliance. ER course was notable for: (1) Neurology Consulted (2) Head CT Negative for bleed on prelim read (3) Recent Travel: Denies PAST MEDICAL HISTORY: HTN, HLD, DM, Dementia, Hypothyroidism, Osteoporosis PAST SURGICAL HISTORY: Social History: Smoking: Denies Alcohol: Denies Drugs: Denies Family History: Non Contributory Allergies No Known Allergies Allergy (Verified 09/28/17 16:57) HOME MEDICATIONS: Home Medications Medication Instructions Recorded Amlodipine Besylate [Norvasc -] 5 mg PO DAILY 05/10/17 Aspirin [ASA -] 81 mg PO DAILY 05/10/17 Atorvastatin Ca [Lipitor] 20 mg PO DAILY 05/10/17 Cholecalciferol (Vitamin D3) 1 tab PO DAILY 05/10/17 [D3-2000] Cyanocobalamin [Vitamin B12 -] 1 tab PO DAILY 05/10/17 Donepezil HCl [Aricept -] 10 mg PO DAILY 05/10/17 Levothyroxine Sodium [Synthroid] 88 mcg PO Q48H 05/10/17 Levothyroxine [Synthroid -] 100 mcg PO Q48H 05/10/17 Propranolol HCl 60 mg PO DAILY 05/10/17 Uridine 300 mg PO DAILY 05/10/17 metFORMIN XR [Glucophage Xr -] 1 tab PO DAILY 05/10/17 Polyvinyl Alcohol [Artificial 1 drop OU BID PRN #0 ml 05/14/17 Tears] REVIEW OF SYSTEMS Unable to obtain PHYSICAL EXAMINATION Vital Signs - 24 hr 02/06/19 21:20 Temperature 98.2 F Pulse Rate 74 Respiratory 16 Rate Blood Pressure 132/66 O2 Sat by Pulse 93 L Oximetry (%) GENERAL: A&Ox1 HEAD: NCAT EYES: EOMI EARS, NOSE, THROAT: Poor dentition, Moist mucous membranes NECK: Supple LUNGS: clear to auscultation bilaterally. No wheezes, no crackles. HEART: Regular rate and rhythm, normal S1 and S2 without murmur ABDOMEN: Soft, nontender, not distended, + bowel sounds, no guarding EXTREMITIES: No peripheral edema. NEUROLOGICAL: Awake, Not following commands, Confused and disoriented, Mildly combative PSYCHIATRIC: Dementia SKIN: Warm, dry Laboratory Results - last 24 hr 02/06/19 02/06/19 02/06/19 22:01 22:01 22:01 WBC 7.6 RBC 3.23 L Hgb 9.4 L Hct 28.8 L D MCV 89.1 MCH 29.2 MCHC 32.8 RDW 16.3 H Plt Count 361 D MPV 7.1 L D Absolute Neuts (auto) 5.1 Neutrophils % 67.7 Lymphocytes % 22.1 D Monocytes % 7.0 Eosinophils % 2.7 D Basophils % 0.5 Nucleated RBC % 0 PT with INR 12.50 INR 1.06 Sodium 137 Potassium 4.1 Chloride 104 Carbon Dioxide 29 Anion Gap 5 L BUN 25 H Creatinine 1.0 Creat Clearance w eGFR 52.33 Random Glucose 87 Calcium 9.1 Total Bilirubin 0.2 AST 11 L ALT 8 L Alkaline Phosphatase 53 Creatine Kinase 24 L Troponin I < 0.02 Total Protein 7.8 Albumin 2.2 L Triglycerides 130 Cholesterol 136 Total LDL Cholesterol 69 HDL Cholesterol 53 Blood Type Antibody Screen 02/06/19 22:01 WBC RBC Hgb Hct MCV MCH MCHC RDW Plt Count MPV Absolute Neuts (auto) Neutrophils % Lymphocytes % Monocytes % Eosinophils % Basophils % Nucleated RBC % PT with INR INR Sodium Potassium Chloride Carbon Dioxide Anion Gap BUN Creatinine Creat Clearance w eGFR Random Glucose Calcium Total Bilirubin AST ALT Alkaline Phosphatase Creatine Kinase Troponin I Total Protein Albumin Triglycerides Cholesterol Total LDL Cholesterol HDL Cholesterol Blood Type O POSITIVE Antibody Screen Negative Active Medications Aspirin (Ecotrin -) 81 mg PO DAILY [facility] Atorvastatin Calcium (Lipitor -) 40 mg PO HS [facility] Heparin Sodium (Porcine) (Heparin -) 5,000 unit SQ BID [facility]AH[facility] Sodium Chloride (Normal Saline -) 1,000 mls @ 42 mls/hr IV ASDIR SARAHY Last Admin: 02/06/19 21:45 Dose: 42 mls/hr Lactated Ringer's (Lactated Ringers Solution) 1,000 ml in 1,000 mls @ 60 mls/ hr IV ASDIR SARAHY Last Admin: 02/07/19 00:53 Dose: 60 mls/hr Insulin Aspart (Novolog Vial Sliding Scale -) 1 vial SQ ACHS SARAHY; Protocol IMAGING: -Head CT: Atrophy with small vessel periventricular ischemic changes. Otherwise no acute changes evident ASSESSMENT/PLAN: 89 y/o F with PMHx of HTN, HLD, DM, Dementia, Hypothyroidism, Osteoporosis presents after an episode of facial droop and increasing confusion admitted to r /o CVA/TIA. #Confusion -R/O Metabolic derrangements, Infectious causes, TIA/CVA -Previously reported Facial droop resolved on my examination -Head CT noted above -Orthostatic VS, Brain MRI, Echo, Carotid doppler pending -Check A1c, TSH, B12, Folate, RPR -Neurology (Dr. Chanel) consulted -LR @ 60 mls/hr -Keep HOB Elevated -Fall, Seizure, Dysphagia precautions -NPO until speech and swallow evaluation -Physical therapy -ASA, Atorvastatin 40mg HS #HTN -Hold antiHTN meds and allow permissive HTN for now #HLD -Atorvastatin 40mg HS #DM -ISS BGMs ACHS #Dementia -Can resume home dementia meds once meds confirmed #Hypothyroidism -Resume meds once med's recc'ed #FEN -LR @ 60 mls/hr -Monitor Lytes -NPO #PPx -DVT: Heparin BID Visit type - Emergency Visit Emergency Visit: Yes ED Registration Date: 02/07/19 Care time: The patient presented to the Emergency Department on the above date and was hospitalized for further evaluation of their emergent condition. - New Patient This patient is new to me today: Yes Date on this admission: 02/07/19 - Critical Care Critical Care patient: No
--- NOTE | 2019-02-07 01:51 | PDOC ---
Documentation entered by Louis Caballero SCRIBE, acting as scribe for Emiliana Layne MD. Emiliana Layne MD: This documentation has been prepared by the Federico sim Nirvannie, SCRIBE, under my direction and personally reviewed by me in its entirety. I confirm that the documentation accurately reflects all work, treatment, procedures, and medical decision making performed by me. Attending Attestation - Resident Resident Name: Los Greer - ED Attending Attestation I have performed the following: I have examined & evaluated the patient, The case was reviewed & discussed with the resident, I agree w/resident's findings & plan - HPI HPI: 02/06/19 21:51 The patient is a 89 year old female, with a significant past medical history of dementia, diabetes, hypertension, hypothyroidism, hypercholesterolemia, and osteoporosis, who presents to the emergency department with, left facial droop. As per patients son at bedside, his sister saw their mother at 12:30pm at which time she noticed a left facial droop. Son notes when he saw the patient he believed it was [place] Palsy thus, they did not bring her to the ER at that time. Tonight son notes patient said she feels as if she is going to , prompting their arrival to the ED. Allergies: NKDA Last Known Well: 02/05/2019 at 5:00pm - Physicial Exam PE: 02/06/19 23:44 GENERAL: +Argumentative. Awake, alert, in no acute distress HEAD: +Minimal left nasolabial fold and angle of the mouth droop. ENT: +Dry MM. NECK: Normal ROM, supple, no lymphadenopathy, JVD, or masses LUNGS: Breath sounds equal, clear to auscultation bilaterally. No wheezes, and no crackles HEART: Regular rate and rhythm, normal S1 and S2, no murmurs, rubs or gallops ABDOMEN: Soft, nontender, normoactive bowel sounds. No guarding, no rebound. No masses EXTREMITIES: Normal range of motion, no edema. No clubbing or cyanosis. No cords, erythema, or tenderness NEUROLOGICAL: Cranial nerves II through XII grossly intact. Forehead wrinkling blt. Strength 5/5 blt UE and LE. SKIN: Warm, Dry, normal turgor, no rashes or lesions noted. - Medical Decision Making 02/06/19 21:59 Patient Name: LETITIA NY THIS IS A PRELIMINARY REPORT FROM [facility] DATE OF SERVICE: 2019-02-06 21:21:51 IMAGES: 216 EXAM: HEAD CT (STROKE) History: 89-year-old female evaluate for stroke. Comparison: None provided Procedure: CT scan head, dated February 06, 2019 . Axial images obtained followed by coronal and sagittal reconstructions. Study performed unenhanced. Findings: Visualized portion of the paranasal sinuses, mastoid air cells, and external ear canals are air filled. Ventriculomegaly is present, commensurate with dilatation to the basilar cisterns, sylvian fissures and cerebral sulci. Small vessel periventricular ischemic changes present. There is no evidence of an intra-or extra-axial mass lesion, mass-effect or bleed. Loza- white differentiation is maintained. No hyperdense vessel sign identified. Thinning of the corpus callosum, consistent with aging. Craniocervical junction normal in appearance. Impression: 1. Atrophy with small vessel periventricular ischemic changes. 2. Otherwise no acute changes evident. Recommendation: If clinical concern for stroke persist, suggest MRI follow-up with diffusion-weighted imaging 02/07/19 00:06 Pt has received 1 L of NSS and she is feeling much better. She states that she is starving. Her kids tell me that she barely ate. Her appetite is good and she is eating now in the ER. 02/07/19 19:34 Pt admitted to the hospitalist for TIA; daughter states that although pt is making sense, pt is slurring her speech.
[2019-02-07] MEDS ORDERED: LORazepam 2 MG/ML SDV VIAL ONE (03:02)
[2019-02-07 07:28] LABS: ALBUMIN 2.1 g/dl (3.4-5.0); ALK PHOS 52 U/L (45-117); ANION GAP 5 MMOL/L (8-16); BILIRUBIN,TOTAL 0.3 mg/dL (0.2-1); BLOOD UREA NITROGEN 21 mg/dL (7-18); CALCIUM 8.9 mg/dL (8.5-10.1); CHLORIDE 104 mmol/L (98-107); CO2 27 mmol/L (21-32); CREATININE 0.9 mg/dL (0.55-1.3); GLUCOSE,RANDOM 90 mg/dL (74-106); MAGNESIUM 1.9 mg/dL (1.8-2.4); PHOSPHOROUS 3.3 mg/dL (2.5-4.9); POTASSIUM 4.1 mmol/L (3.5-5.1); SGOT/AST 9 U/L (15-37); SODIUM 136 mmol/L (136-145); TOT PROT 7.4 g/dl (6.4-8.2)
[2019-02-07 07:29] LABS: BASO % 0.6 % (0-2.0); EOS % 2.4 % (0-4.5); HEMATOCRIT 27.3 % (32.4-45.2); HEMOGLOBIN 9.1 GM/dL (10.7-15.3); LYMPH % 17.9 % (8-40); MCH 29.5 pg (25.7-33.7); MCHC 33.3 g/dl (32.0-36.0); MEAN CELL VOLUME 88.4 fl (80-96); MEAN PLT VOLUME 7.8 fl (7.5-11.1); MONO % 5.9 % (3.8-10.2); NEUT % 73.2 % (42.8-82.8); PLATELET COUNT 382 K/MM3 (134-434); RBC 3.09 M/mm3 (3.60-5.2); RDW 16.3 % (11.6-15.6); WHITE BLOOD COUNT 8.1 K/mm3 (4.0-10.0)
[2019-02-07 07:30] LABS: SGPT/ALT < 6 U/L (13-61)
[2019-02-07] MEDS: INSULIN SLIDING SCALE (NOVOLOG) 1 VIAL SQ SCH ×4 (07:43→22:12)
[2019-02-07 08:30] LABS: PREALBUMIN 31.2 mg/dl (20-40)
[2019-02-07 08:54] LABS: PH,URINE 6.5 (5.0-8.0); URINE APPEARANCE CLEAR; URINE BACTERIA 204.1 /hpf (NEGATIVE); URINE BILIRUBIN NEGATIVE (NEGATIVE); URINE CASTS 4 /lpf (0-8); URINE COLOR YELLOW; URINE GLUCOSE (UA) NEGATIVE (NEGATIVE); URINE KETONE NEGATIVE (NEGATIVE); URINE LEUK ESTERASE NEGATIVE (NEGATIVE); URINE NITRITE NEGATIVE (NEGATIVE); URINE PROTEIN NEGATIVE (NEGATIVE); URINE RBC 42 /hpf (0-4); URINE UROBILINOGEN 0.2 mg/dL (0.2-1.0); URINE WBC 2 /hpf (0-5)
--- NOTE | 2019-02-07 09:18 | EKG ---
Test Reason : Blood Pressure : / mmHG Vent. Rate : 070 BPM Atrial Rate : 070 BPM P-R Int : 172 ms QRS Dur : 094 ms QT Int : 382 ms P-R-T Axes : 036 -29 057 degrees QTc Int : 412 ms POOR DATA QUALITY, INTERPRETATION MAY BE ADVERSELY AFFECTED NORMAL SINUS RHYTHM INCOMPLETE RIGHT BUNDLE BRANCH BLOCK LEFT VENTRICULAR HYPERTROPHY WITH REPOLARIZATION ABNORMALITY ABNORMAL ECG WHEN COMPARED WITH ECG OF 11-JUL-2017 15:21, NO SIGNIFICANT CHANGE WAS FOUND Confirmed by ELLEN MILLS, MARLA ([id number]) on 02/07/2019 9:18:30 AM Referred By: Confirmed By:MARLA HUGHES MD
[2019-02-07] MEDS ORDERED: ASPIRIN COATED 81 MG TABLET.EC ONE (10:47)
[2019-02-07] MEDS: ASPIRIN COATED 81 MG TABLET.EC PO SCH ×2 (10:48→11:06)
[2019-02-07] MEDS ORDERED: HEPARIN NA (PORCINE) 5,000 UNITS/ML 1ML VIAL ONE (10:48)
[2019-02-07] MEDS: HEPARIN NA (PORCINE) 5,000 UNITS/ML 1ML VIAL SQ SCH ×2 (10:48→22:04)
[2019-02-07] MEDS ORDERED: ACETAMINOPHEN 1000 MG/100 ML VIAL (NON FORMULARY) IVPB ONE (11:19)
--- NOTE | 2019-02-07 13:35 | PN ---
Progress Note (short form) - Note Progress Note: Subjective: Unable to obtain any history form patient as confused and sleeping. per daughter , mom has been sleeping all night after they gave her benadryl and ativan last night. poor po intake in general but this has not changes in past few days. recent changes to her meds by PCP . takes aspirin daily . per aid and daughter , no dysuria, abd pain, fever , diarrhea, or cough/cp/SOB in past few days Objective: Vital Signs: Last Vital Signs Temp Pulse Resp BP Pulse Ox 99 F 97 H 16 95/76 95 02/07/19 13:00 02/07/19 11:00 02/07/19 11:00 02/07/19 11:00 02/07/19 11:00 Laboratory Results - last 24 hr 02/06/19 02/06/19 02/06/19 08:41 22:01 22:01 WBC 7.6 RBC 3.23 L Hgb 9.4 L Hct 28.8 L D MCV 89.1 MCH 29.2 MCHC 32.8 RDW 16.3 H Plt Count 361 D MPV 7.1 L D Absolute Neuts (auto) 5.1 Neutrophils % 67.7 Lymphocytes % 22.1 D Monocytes % 7.0 Eosinophils % 2.7 D Basophils % 0.5 Nucleated RBC % 0 PT with INR 12.50 INR 1.06 Sodium Potassium Chloride Carbon Dioxide Anion Gap BUN Creatinine Creat Clearance w eGFR POC Glucometer Random Glucose Hemoglobin A1c % Calcium Phosphorus Magnesium Total Bilirubin AST ALT Alkaline Phosphatase Creatine Kinase Troponin I Total Protein Albumin Prealbumin Triglycerides Cholesterol Total LDL Cholesterol HDL Cholesterol Vitamin B12 Serum Folate TSH Urine Color Yellow Urine Appearance Clear Urine pH 6.5 D Ur Specific [place] 1.017 Urine Protein Negative Urine Glucose (UA) Negative Urine Ketones Negative Urine Blood 2+ H Urine Nitrite Negative Urine Bilirubin Negative Urine Urobilinogen 0.2 Ur Leukocyte Esterase Negative Urine WBC (Auto) 2 Urine RBC (Auto) 42 Urine Casts (Auto) 4 U Epithel Cells (Auto) 1.0 Urine Bacteria (Auto) 204.1 RPR Titer Blood Type Antibody Screen 02/06/19 02/06/19 02/07/19 22:01 22:01 05:20 WBC RBC Hgb Hct MCV MCH MCHC RDW Plt Count MPV Absolute Neuts (auto) Neutrophils % Lymphocytes % Monocytes % Eosinophils % Basophils % Nucleated RBC % PT with INR INR Sodium 137 136 Potassium 4.1 4.1 Chloride 104 104 Carbon Dioxide 29 27 Anion Gap 5 L 5 L BUN 25 H 21 H Creatinine 1.0 0.9 Creat Clearance w eGFR 52.33 59.09 POC Glucometer Random Glucose 87 90 Hemoglobin A1c % Calcium 9.1 8.9 Phosphorus 3.3 Magnesium 1.9 Total Bilirubin 0.2 0.3 AST 11 L 9 L ALT 8 L < 6 L Alkaline Phosphatase 53 52 Creatine Kinase 24 L Troponin I < 0.02 Total Protein 7.8 7.4 Albumin 2.2 L 2.1 L Prealbumin 31.2 Triglycerides 130 Cholesterol 136 Total LDL Cholesterol 69 HDL Cholesterol 53 Vitamin B12 > 2000 H Serum Folate 68 H TSH 2.30 Urine Color Urine Appearance Urine pH Ur Specific [place] Urine Protein Urine Glucose (UA) Urine Ketones Urine Blood Urine Nitrite Urine Bilirubin Urine Urobilinogen Ur Leukocyte Esterase Urine WBC (Auto) Urine RBC (Auto) Urine Casts (Auto) U Epithel Cells (Auto) Urine Bacteria (Auto) RPR Titer Blood Type O POSITIVE Antibody Screen Negative 02/07/19 02/07/19 02/07/19 05:20 05:20 07:15 WBC 8.1 RBC 3.09 L Hgb 9.1 L Hct 27.3 L MCV 88.4 MCH 29.5 MCHC 33.3 RDW 16.3 H Plt Count 382 MPV 7.8 Absolute Neuts (auto) 5.9 Neutrophils % 73.2 Lymphocytes % 17.9 Monocytes % 5.9 Eosinophils % 2.4 Basophils % 0.6 Nucleated RBC % 0 PT with INR INR Sodium Potassium Chloride Carbon Dioxide Anion Gap BUN Creatinine Creat Clearance w eGFR POC Glucometer Random Glucose Hemoglobin A1c % 5.8 Calcium Phosphorus Magnesium Total Bilirubin AST ALT Alkaline Phosphatase Creatine Kinase Troponin I Total Protein Albumin Prealbumin Triglycerides Cholesterol Total LDL Cholesterol HDL Cholesterol Vitamin B12 Serum Folate TSH Urine Color Urine Appearance Urine pH Ur Specific [place] Urine Protein Urine Glucose (UA) Urine Ketones Urine Blood Urine Nitrite Urine Bilirubin Urine Urobilinogen Ur Leukocyte Esterase Urine WBC (Auto) Urine RBC (Auto) Urine Casts (Auto) U Epithel Cells (Auto) Urine Bacteria (Auto) RPR Titer Nonreactive Blood Type Antibody Screen 02/07/19 11:16 WBC RBC Hgb Hct MCV MCH MCHC RDW Plt Count MPV Absolute Neuts (auto) Neutrophils % Lymphocytes % Monocytes % Eosinophils % Basophils % Nucleated RBC % PT with INR INR Sodium Potassium Chloride Carbon Dioxide Anion Gap BUN Creatinine Creat Clearance w eGFR POC Glucometer 96 Random Glucose Hemoglobin A1c % Calcium Phosphorus Magnesium Total Bilirubin AST ALT Alkaline Phosphatase Creatine Kinase Troponin I Total Protein Albumin Prealbumin Triglycerides Cholesterol Total LDL Cholesterol HDL Cholesterol Vitamin B12 Serum Folate TSH Urine Color Urine Appearance Urine pH Ur Specific [place] Urine Protein Urine Glucose (UA) Urine Ketones Urine Blood Urine Nitrite Urine Bilirubin Urine Urobilinogen Ur Leukocyte Esterase Urine WBC (Auto) Urine RBC (Auto) Urine Casts (Auto) U Epithel Cells (Auto) Urine Bacteria (Auto) RPR Titer Blood Type Antibody Screen Physical Exam: sleeping with mouth open, resists eye opening. dry MM. no facial droop. CV: RRR, 3/6 SM at LLSBand apex Lungs: CATB , decreased breath soundsa t bases Abd: sfot, NT, ND < NL BS Skin : no decub ulcer on sacral area neuro : very limited. small pupils, 1 mm b/l. no facial droop. unable to examine strength but she moves her arms and legs spontaneously, resists and pushes away examine. 1+ knee jerk b/l. 2+ biceps b/l. Ext : no edema . no erythema. 1+ pitting edema on ankles Imaging: cxray, CUS and MRI report reviewed. Assessment/Plan: 89 y/o lady with h/o retinal vein occlusion, DM, HTN,hypothyridism, HLP, and dementia who was brought with facial droop and increased confusion and slurred speech 1-Acute stroke: MRI reviewed. No facial droop on the limited exam. CUS with no significant stenosis. - cont her home statin - question to neuro if plavix or aggrenox are indicated instead of Asa as stroke happened while on aspirin. - permissive hypertension for today - avoid sedatives to allow for neurological assessment - speech and PT eval . - echo - tele reviewed. No Afib noted _ neuro consult pending - IVF 2- H/o DM : A1c 5.9. she was taken off metformin. 3- volume depletion : clinically and on labs - start IVF 4- fever: unclear source. no signs of infection . hold off Abx. - will check Doppler US - monitor fever curve. - blood cx Code status : DNR/DNI. d/w daughter campos and Erin who are both the health care proxy. Meds were reviewd with daughter, confirmed and updated in EMR Visit type - Emergency Visit Emergency Visit: Yes ED Registration Date: 02/07/19 Care time: The patient presented to the Emergency Department on the above date and was hospitalized for further evaluation of their emergent condition. - New Patient This patient is new to me today: Yes Date on this admission: 02/07/19 - Critical Care Critical Care patient: No
[2019-02-07] MEDS: DEXTROSE 5%-NORMAL SALINE 1,000 ML IV SCH (17:00)
--- NOTE | 2019-02-07 19:00 | CONSULT ---
Consult - text type - Consultation Consultation Note: NEUROLOGY CONSULTATION is greatly appreciated: Events reviewed and Patient examined with her daughter and son-in-law at the bedside. This 89 yo RH woman with H/O HTN, Chol, diabetes and hypothyroidism received Sx of Alzheimer's Disease (AD) by me many years ago. Maintained at home with [employer]'s 28/04. Daughter notes she requires increased assist with gait and balance x "few days." Maintained on: Amlodipine; ASA 81; Atorvastatin; Donepezil 10 mg; Levothyroxine ; Propranolol; Uridine; and metformin XR. Followed by Dr. Weathers ([facility]) and was started on Mirtazepine 7.5 mg 2 weeks ago, increased to 15 mg last week for "combativeness." Increasingly dry mouth. 2 days of persistent cough. Today admitted for "right facial droop." CT of head (reviewed): Moderate atrophy and duffuse microvasular changes. MRI of Brain (reviewed): Moderate, diffuse atrophy and diffuse, severe, white matter microvascular changes B12, TSH, RPR- normal or negative. Anemic. Hematuria. CHIDI: Thin. Neck supple. Neg Kernig's. No bruits. Cor reg. Dry mouth. No evidence of head trauma. Deep cough. In diaper. NEURO: Resting with eyes closed. Opens eyes on commands. Otherwise uncooperative. Sparse fluent speech. +Glabella, snout CN: Full hector to threat. Full EOM's. No facial weakness but involuntary right facial movt's are present (hemifacial spasm? Partial seizure? ) Gag OK Motor: Moves all fours well and spontaneously. Symmetrical grasps. Normal reflexes. Toes downgoing. Coord: No obvious dystaxia Sensory: Withdraws all fours to pinch/touch. IMP: Severe, B/L cerebral dysfunction c/w Chronic Alzheimer's disease (AD) No obvious focality to suggest new CVA. Right facial mov'ts- new hemifacial spasm/partial seizure. Recent worsening suggests Toxic-Metabolic encephalopathy (Mirtazepine, chest infection/UTI?) SUGGEST: D/C Mirtazepine. Hydration Repeat U/A, C&S, Chest X-Ray, ID consult. Observe right facial mov'ts. Follow H/H When more awake and alert would use Quetiapine 12.5 mg PRN agitation and 25 mg HS for sleep/agitation. Continue Donepezil 10 mg PO IN AM. Thank you very much, Harman Chanel MD
[2019-02-07] MEDS ORDERED: ROSUVASTATIN CA 20 MG TABLET (FP) PO SCH (22:00)
[2019-02-07] MEDS: ATORVASTATIN CA 40 MG TABLET (FP) PO SCH (22:04)
[2019-02-08] MEDS ORDERED: PT OWN MED DRAWER 7, Y5N ONE (04:50)
[2019-02-08 06:51] LABS: BASO % 0.5 % (0-2.0); EOS % 2.9 % (0-4.5); HEMATOCRIT 26.1 % (32.4-45.2); HEMOGLOBIN 8.8 GM/dL (10.7-15.3); MCH 29.7 pg (25.7-33.7); MCHC 33.7 g/dl (32.0-36.0); MEAN CELL VOLUME 88.1 fl (80-96); MEAN PLT VOLUME 7.9 fl (7.5-11.1); MONO % 5.2 % (3.8-10.2); NEUT % 68.4 % (42.8-82.8); PLATELET COUNT 359 K/MM3 (134-434); RBC 2.96 M/mm3 (3.60-5.2); RDW 15.9 % (11.6-15.6); WHITE BLOOD COUNT 7.5 K/mm3 (4.0-10.0)
[2019-02-08 06:59] LABS: ANION GAP 6 MMOL/L (8-16); BLOOD UREA NITROGEN 15 mg/dL (7-18); CALCIUM 8.5 mg/dL (8.5-10.1); CHLORIDE 105 mmol/L (98-107); CO2 26 mmol/L (21-32); CREATININE 0.8 mg/dL (0.55-1.3); GLUCOSE,RANDOM 84 mg/dL (74-106); PHOSPHOROUS 3.4 mg/dL (2.5-4.9); POTASSIUM 3.9 mmol/L (3.5-5.1); SODIUM 136 mmol/L (136-145)
[2019-02-08] MEDS: INSULIN SLIDING SCALE (NOVOLOG) 1 VIAL SQ SCH ×4 (08:23→22:44)
--- NOTE | 2019-02-08 10:58 | ECHO ---
Name: LETITIA NY Exam:Adult Echocardiogram Study Date: 02/08/2019 10:06 AM Age: 89 yrs Reason For Study: R/O STROKE Height: 61 in Weight: 110 lb BSA: 1.5 m2 Procedure A complete two-dimensional transthoracic echocardiogram was performed (2D, M-mode, Doppler and color flow Doppler). Left Ventricle The left ventricle is normal in size. Left ventricular systolic function is normal. Ejection Fraction = 60- 65%. Diastolic dysfunction, Grade II (pseudonormalization pattern). No regional wall motion abnormali ties noted. Right Ventricle The right ventricle is normal size. The right ventricular systolic function is normal. RV systolic TD I is 17 cm/s. Atria The left atrial size is normal. Right atrial size is normal. Mitral Valve There is moderate mitral annular calcification. There is mild mitral regurgitation. Tricuspid Valve The tricuspid valve is normal in structure and function. There is mild to moderate tricuspid regurgit ation. Aortic Valve There is moderate aortic sclerosis.;. There is mild aortic valve thickening. Mild valvular aortic glenna nosis. The calculated aortic valve area using the continuity equation is 1.1 cm2. Aortic mean pressure gradi ent= 17 mmHg. DI (Dimensionless Index) is estimated 0.34. No aortic regurgitation is present. Pulmonic Valve The pulmonic valve is not well visualized. Great Vessels The aortic root is normal size. Pericardium/Pleura There is no pericardial effusion. Interpretation Summary The left ventricle is normal in size. Left ventricular systolic function is normal. No regional wall motion abnormalities noted. Ejection Fraction = 60-65%. Diastolic dysfunction, Grade II (pseudonormalization pattern). The right ventricular systolic function is normal. The left atrial size is normal. Right atrial size is normal. There is moderate mitral annular calcification. There is mild mitral regurgitation. There is mild to moderate tricuspid regurgitation. There is moderate aortic sclerosis.; There is mild aortic valve thickening. Mild valvular aortic stenosis. The calculated aortic valve area using the continuity equation is 1.1 cm2. Aortic mean pressure gradient= 17 mmHg DI (Dimensionless Index) is estimated 0.34 No aortic regurgitation is present. The aortic root is normal size. Previous study is not available for comparison Bridger Muñiz MD 02/08/2019 10:58 AM
--- NOTE | 2019-02-08 11:32 | CONSULT ---
Admitting History and Physical - Primary Care Physician PCP: Fawad León - Admission History of Present Illness: 89 y/o F with PMHx of HTN, HLD, DM, Dementia, Hypothyroidism, Osteoporosis presents after an episode of facial droop and increasing confusion admitted to r /o CVA/TIA. Confusion R/O Metabolic derrangements, Infectious causes, TIA/CVA Facial droop resolved Neurology imp- Severe, B/L cerebral dysfunction c/w Chronic Alzheimer's disease (AD) No obvious focality to suggest new CVA. Right facial mov'ts- new hemifacial spasm/partial seizure. Recent worsening suggests Toxic-Metabolic encephalopathy (Mirtazepine, chest infection/UTI?) Selected Entries 02/08/19 02/08/19 02/08/19 02:44 06:00 09:36 Temperature 98.5 F 99 F 98.8 F Laboratory Tests 02/08/19 05:30 WBC 7.5 This is my first consult with this pt. 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 Cardiovascular: Yes: HTN, Hyperlipdemia Endocrine: Yes: Diabetes Mellitus, Hypothyroidism - Smoking History Smoking history: Never smoked - Alcohol/Substance Use Hx Alcohol Use: No - Social History ADL: Independent History - Admission Reason For Visit: TRANSIENT ISCHEMIC ATTACK/ALTERED MENTAL STATUS - Diagnostics CT Scan: Report Reviewed (CT of head : Moderate atrophy and duffuse microvasular changes.) MRI: Report Reviewed (MRI of Brain : Moderate, diffuse atrophy and diffuse, severe, white matter microvascular changes) - General Mental Status: Alert and Oriented (oriented to hospital, , "[age] yo"), Awake and Alert, Able to Follow Commands Attention: Intact Ability to Follow Directions: Fair Head/Neck Control: Good - Hearing Hearing: Impaired (Very [place], Needs frequent repetition) Hearing Aide: No Speech Evaluation - Communication Primary Language: GERMAN Secondary Language: [place] (fluent) Communication: Yes: Within Normal Limits, Dysarthria Oral Expression Ability: Yes: Mild Impairment - Speech Production Able to Make Needs Known: Yes: Mildly Impaired Intelligibility: Yes: Mildly Impaired - Speech Characteristics Voice Loudness: Mildly Soft/Quiet Voice Pitch: Yes: Excessive Variation, Pitch Breaks Voice Phonatory-based Quality: Yes: Hoarse, Dysphonia, Vocal Wetness Speech Pattern: Impaired Speech Clarity: < 75% Nasal Resonance: Normal Articulation: Yes: Imprecise Voice, Other Observations: Yes: Throat Clearing, Progressively Weak Voice - Language/Auditory Comprehension Follows: Yes: 1 Stage Simple Commands Observation: Comprehends Conversational Speech: Yes (when loud enough), Benefits from Slow Speech: Yes, Benefits from Repetiton: Yes, Benefits from Increased Volume of Speech: Yes - Language/Verbal Expression Able to Communicate Wants and Needs: Yes: Mildly Impaired Functional Communication Status: Yes: Mildly Impaired - Swallow Evaluation/Bedside Assessment Current Nutritional Intake: NPO Dentition: Yes: Missing Teeth Facial Symmetry at Rest: Facial Droop Left Facial Symmetry on Retraction: Symmetrical Against Resistance Opening: Weak Against Resistance Closing: Weak Pucker Lips: Weak Smile: Weak Lingual Movement: Symmetric, Reduced Protrusion Lingual Speed of Movement: Reduced Lingual Movement Strgth Against Opposition: Reduced Laryngeal Elevation: Impaired Laryngeal Movement: Reduced Excursion, Labored,delay initiation, Reduced Velocity Rate of Intake: WFL Bolus Size: Small Labial Seal: WFL Chewing: Impaired (unable to bite ge cracker "too hard") Oral Prep Time: Increased A-P Transit: Impaired Pocketing: None Timing of Swallow: Delayed Coughing/Throat Clear: Yes (thin liquids) Recommendations - Speech Evaluation, Impression/Plan Impression: Speech imprecise, voice dysphonic, responsive cough with thin liquid , VERY [place], adversely affects communication and cognition. Impaired abilty to recall age after 1 min with distraction. - Disposition Discharge to: To be Determined - Dysphagia Impressions/Plan Swallowing Skills: Impaired Dysphagia Impressions: Mild Impairment, Moderate Impairment, Ongoing Evaluation , Suspect Aspiration *Silent aspiration: cannot be R/O at bedside Dysphagia Treatment Plan: Small Bites, Chin Tuck/Down, Clear Pocket Food, Safe Rate, 1/2 tsp. at a time, Elevate HOB during feed, Other (mouth care before and after ,meals) Recommendations: Modified Barium Swallow (when stronger. tmw?), Other (Personal amplifier, if she does not own hearing aids ([email or web address])) - Recommendations Diet Consistency: Dysphagia Pureed Medication Administration: Crushed with applesauce Liquids: [employer] Thick Supplement: Magic Cup, Ensure Pudding
[2019-02-08] MEDS: ASPIRIN COATED 81 MG TABLET.EC PO SCH (11:51)
[2019-02-08] MEDS: LEVOTHYROXINE NA 112 MCG TABLET (FP) PO SCH (11:51)
[2019-02-08] MEDS ORDERED: QUEtiapine FUMARATE 25 MG TABLET (FP) PO PRN (12:09)
--- NOTE | 2019-02-08 12:57 | PN ---
Physical Exam: SUBJECTIVE: Patient seen and examined this AM. She is unable to state where she is and is very hard of hearing, however she is able to state that she currently feels well and has no complaints at this time. OBJECTIVE: Vital Signs Period Temp Pulse Resp BP Sys/Zavala Pulse Ox Last 24 Hr 97 F-99 F 73-93 16-20 113-139/55-79 88-98 GEN: Alert, oriented only to self, no acute distress HEENT: PERRL, moist mucus membranes HEART: systolic murmur, regular rate and rhythm LUNGS: CTA b/l, no wheezes or rhonchi ABDOMEN: Soft, nontender, normoactive bowel sounds EXTREMITIES: no calf tenderness, no peripheral edema NEURO: minimal ability to comply with neuro exam, left facial droop noted, unable to determine any sensory deficits, possible RUE weakness though no gross focal deficits noted. Laboratory Results - last 24 hr 02/07/19 02/07/19 02/08/19 18:59 22:10 05:30 WBC 7.5 RBC 2.96 L Hgb 8.8 L Hct 26.1 L MCV 88.1 MCH 29.7 MCHC 33.7 RDW 15.9 H Plt Count 359 MPV 7.9 Absolute Neuts (auto) 5.1 Neutrophils % 68.4 Lymphocytes % 23.0 D Monocytes % 5.2 Eosinophils % 2.9 Basophils % 0.5 Nucleated RBC % 0 Sodium Potassium Chloride Carbon Dioxide Anion Gap BUN Creatinine Creat Clearance w eGFR POC Glucometer 82 86 Random Glucose Calcium Phosphorus 02/08/19 05:30 WBC RBC Hgb Hct MCV MCH MCHC RDW Plt Count MPV Absolute Neuts (auto) Neutrophils % Lymphocytes % Monocytes % Eosinophils % Basophils % Nucleated RBC % Sodium 136 Potassium 3.9 Chloride 105 Carbon Dioxide 26 Anion Gap 6 L BUN 15 Creatinine 0.8 Creat Clearance w eGFR 67.69 POC Glucometer Random Glucose 84 Calcium 8.5 Phosphorus 3.4 Active Medications Generic Name Dose Route Start Last Admin Trade Name Freq PRN Reason Stop Dose Admin Aspirin 81 mg 02/07/19 10:00 02/08/19 11:51 Ecotrin - PO 81 mg DAILY SARAHY Administration Atorvastatin Calcium 40 mg 02/07/19 22:00 02/07/19 22:04 Lipitor - PO 40 mg HS SARAHY Administration Donepezil HCl 5 mg 02/08/19 12:15 Aricept - PO DAILY SARAHY Heparin Sodium (Porcine) 5,000 unit 02/08/19 14:00 Heparin - SQ TID SARAHY Dextrose/Sodium Chloride 1,000 mls @ 60 mls/hr 02/07/19 13:30 02/07/19 17:00 D5-Ns - IV 60 mls/hr ASDIR SARAHY Administration Insulin Aspart 1 vial 02/07/19 07:00 02/08/19 08:23 Novolog Vial Sliding Scale - SQ Not Given ACHS [facility] Protocol Levothyroxine Sodium 112 mcg 02/08/19 07:00 02/08/19 11:51 Synthroid - PO 112 mcg DAILY@0700 SARAHY Administration Quetiapine Fumarate 25 mg 02/08/19 22:00 Seroquel - PO HS SARAHY Quetiapine Fumarate 12.5 mg 02/08/19 12:09 Seroquel - PO DAILY PRN AGITATION ASSESSMENT/PLAN: 89 yo female with PMH HTN, HLD, DM, Dimentia, Hypothyroid, Osteoporosis admitted with weakness and lethargy Acute/Subacute CVA vs Medication oversedation -recent medication changes noted which likely affected sedation and slurred speech, improving following mirtazapine d/c -MRI noted with acute/subacute lacunar infarct in R periventricular white matter , chronic lacunar infarcts -Neurology recommendations appreciated, likely right sided facial spasm as opposed to left sided facial droop -speech consult appreciated with diet recs as below -cont home statin -Echo with Grade II diastolic dysfunction, no thrombi or concerning valve dysfunction Hx of NIDDM -no longer on Metformin -recent A1C 5.9 HTN -b.p stable HLD -Cont lipitor 40 mg PO HS Hypothyroid -Continue synthroid 112 mcg PO Daily -TSH 2.3 on admission FEN -D5 NS @ 60 cc/hr -monitor and replete -puree diet, nectar thick liquids, meds crushed in applesauce DVT Prophylaxis -Heparin 5000 units SQ BID Disposition Can possibly d/c in AM if continued improvement Visit type - Emergency Visit Emergency Visit: Yes ED Registration Date: 02/07/19 Care time: The patient presented to the Emergency Department on the above date and was hospitalized for further evaluation of their emergent condition. - New Patient This patient is new to me today: Yes Date on this admission: 02/08/19 - Critical Care Critical Care patient: No
[2019-02-08] MEDS: DONEPEZIL HCL 5 MG TABLET (FP) PO SCH (13:13)
[2019-02-08] MEDS: HEPARIN NA (PORCINE) 5,000 UNITS/ML 1ML VIAL SQ SCH ×2 (14:00→22:37)
--- NOTE | 2019-02-08 15:31 | PN ---
Teaching Attending Note Name of Resident: Miguel Ángel Staples ATTENDING PHYSICIAN STATEMENT I saw and evaluated the patient. I reviewed the resident's note and discussed the case with the resident. I agree with the resident's findings and plan as documented. SUBJECTIVE: No fever or chills. no pain, no TREJO . No abd pain. OBJECTIVE: Awake, knows she is in hospital , knows her , diaz snot know the year. alert, cooperative , calm. MM are more moist today. hard of hearing. CV: RRR, 3/6 SM at LLSB and apex. Lungs: CATB Abd: soft, NT, ND, NL BS. Neuro: slightly slurred speech. still limited. small equal pupils, 1 mm b/l. mild LL facial droop.EOMI. tongue at mid line. unable to visualize uvula. strength exam is very limited biceps 4/5 on R, and 5/5 on L , hip flexion 4/5 b/l. not cooperative with rest of motor exam. sensation to light touch nl in face, unable to assess in rest of body. reflexes 2+ biceps and knee jerk b/l Assessment/Plan: 89 y/o lady with h/o retinal vein occlusion, DM, HTN, hypothyridism, HLP, and dementia who was brought with facial droop and increased confusion and slurred speech 1-Acute stroke: neuro exam as above . - cont her home statin - aspirin - resume propranolol in am if needed . BP on lower side - speech eval done, start puree with nectar thick liquids - echo , done , unable to view report - tele reviewed. No Afib noted 2- AMS/possible metabolic encephalopathy due to volume depletion, meds or other. - no signs of infection. urine cx neg , no recurrence of fever , no resp symptoms . no infiltrate. - mental status is almost at base line. - cont IVF - seroquel per neuro 3- H/o DM: A1c 5.9. she was taken off metformin. 4- volume depletion : cont IVF . start feeding 5- fever: unclear source. no signs of infection . hold off Abx. - infectious w/u neg to date . monitor off Abx . Dispo: anticipate continued improvement and dc home with VNS /aids tomorrow if no new events code status was revisited with her daughter Audelia. She is still DNR/DNI.
--- NOTE | 2019-02-08 19:04 | PN ---
Progress Note (short form) - Note Progress Note: NEUROLOGY PROGRESS: Events reviewed and discussed with house office and family. Calmer and somewhat more cooperative off Mirtazepine and on Quetiapine. Follows simple commands, only. Sl dysarthric. Full hector to threat. Gag OK Still with right hemifacial spasm. No evidence of eye closure weakness or asymmetry of blink to suggest sig left facial weakness. Moves all fours well and symmetrically. IMP: Non-focal exam sig for severe, B/L, cerebral dysfunction (OMS/Chronic) most c/w Alzheimer's disease (AD). Doubt new CVA- presentation most c/w Toxic metabolic encephalopathy due to meds. 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 SUGGEST: Observe off Mirtazepine. Decrease quetiapine slightly if patient exhibits daytime sedation. Push PO fluids and feed patient with HOB elevated or patient mobilized OO Bed to chair. Thank you very much, Harman Chanel MD
[2019-02-08] MEDS ORDERED: QUEtiapine FUMARATE 25 MG TABLET (FP) PO SCH (22:00)
[2019-02-08] MEDS: ATORVASTATIN CA 40 MG TABLET (FP) PO SCH (22:43)
[2019-02-08] MEDS: DEXTROSE 5%-NORMAL SALINE 1,000 ML IV SCH (22:47)
[2019-02-09 06:11] VITALS: BP 135/76; PULSE 86; TEMP 98.4
[2019-02-09] MEDS: HEPARIN NA (PORCINE) 5,000 UNITS/ML 1ML VIAL SQ SCH (06:11)
[2019-02-09] MEDS: INSULIN SLIDING SCALE (NOVOLOG) 1 VIAL SQ SCH ×2 (06:11→12:45)
[2019-02-09] MEDS: LEVOTHYROXINE NA 112 MCG TABLET (FP) PO SCH (06:12)
[2019-02-09 08:05] LABS: BASO % 0.3 % (0-2.0); EOS % 2.7 % (0-4.5); HEMATOCRIT 27.2 % (32.4-45.2); LYMPH % 13.4 % (8-40); MCH 29.6 pg (25.7-33.7); MCHC 33.2 g/dl (32.0-36.0); MEAN CELL VOLUME 89.1 fl (80-96); MEAN PLT VOLUME 7.6 fl (7.5-11.1); MONO % 4.8 % (3.8-10.2); NEUT % 78.8 % (42.8-82.8); PLATELET COUNT 352 K/MM3 (134-434); RBC 3.06 M/mm3 (3.60-5.2); RDW 16.1 % (11.6-15.6); WHITE BLOOD COUNT 7.6 K/mm3 (4.0-10.0)
--- NOTE | 2019-02-09 10:59 | PN ---
Progress Note, SIMULATION TECHNICIAN - Note Progress Note: Selected Entries 02/08/19 02/08/19 02/08/19 02:44 06:00 09:36 Supper Temperature 98.5 F 99 F 98.8 F 02/08/19 02/08/19 02/08/19 14:05 18:00 21:44 Supper 25% Temperature 98.4 F 98.7 F 98.8 F 02/09/19 02/09/19 02:00 06:00 Supper Temperature 99.4 F 98.4 F Laboratory Tests 02/09/19 05:35 WBC 7.6 Refusing PO trials for staff. Pt on nectar thick liquid. Pending d/c. Suggest continued used of thickened liquid if pt will comply.
[2019-02-09] MEDS: ASPIRIN COATED 81 MG TABLET.EC PO SCH (12:17)
[2019-02-09] MEDS: DONEPEZIL HCL 5 MG TABLET (FP) PO SCH (12:18)
--- NOTE | 2019-02-09 12:35 | DS ---
Physical Exam: SUBJECTIVE: Patient seen and examined this AM. She states she is feeling well this morning and is ready to go home. OBJECTIVE: Vital Signs Period Temp Pulse Resp BP Sys/Zavala Pulse Ox Last 24 Hr 98.4 F-99.4 F 82-94 17-20 107-154/60-82 94 PHYSICAL EXAM GEN: Alert, oriented only to self, no acute distress HEENT: PERRL, moist mucus membranes HEART: systolic murmur, regular rate and rhythm LUNGS: CTA b/l, no wheezes or rhonchi ABDOMEN: Soft, nontender, normoactive bowel sounds EXTREMITIES: no calf tenderness, no peripheral edema NEURO: minimal ability to comply with neuro exam, seeming left facial droop noted vs right facial spasticity, unable to determine any sensory deficits, possible RUE weakness though no gross focal deficits noted. LABS Laboratory Results - last 24 hr 02/08/19 02/09/19 18:09 05:35 WBC 7.6 RBC 3.06 L Hgb 9.0 L Hct 27.2 L MCV 89.1 MCH 29.6 MCHC 33.2 RDW 16.1 H Plt Count 352 MPV 7.6 Absolute Neuts (auto) 6.0 Neutrophils % 78.8 Lymphocytes % 13.4 D Monocytes % 4.8 Eosinophils % 2.7 Basophils % 0.3 Nucleated RBC % 0 POC Glucometer 85 HOSPITAL COURSE: Date of Admission:02/07/19 Date of Discharge: 02/09/19 HPI on admission: 89 y/o F with PMHx of HTN, HLD, DM, Dementia, Hypothyroidism, Osteoporosis presents after an episode of facial droop and increasing confusion. Patient is confused during my examination, thus the majority of the history was provided by chart review and by the NEWS VIDEOTAPE EDITOR present at bedside. Patient was found to be in her normal state of health on 02/05 however around Noon the following day, her family member noticed a slight left facial droop. They also noticed increasing confusion at which point the NEWS VIDEOTAPE EDITOR was prompted to visit the ED. As per EMR, patients NIHSS was 3 upon arrival. Her facial droop has improved however patient remains confused, continuously trying to get out of the bed requesting to go home, and slightly combative. Patient does not have dysarthria but remains disoriented. Home health aid endorse medication compliance. Hospital Course: She was seen by neurology who recommended MRI/MRA and holding Mirtazapine, replacing it with seroquel. MRI revealed acute vs subacute infarct in periventricular white matter on the left side with multiple chronic lacunar infarcts. Pt improved off of mirtazapine. Neurology felt MRI findings were not relevant to her symptoms that brought her to the hospital and that left facial droop was actually a right sided facial spasm. Pt was given seroquel at night with good effect for sleep/agitation. She was also given a dose during the day for agitation however it caused daytime somnolence and was discontinued prior to discharge. She was deemed medically safe for discharge with follow up by primary care and neurology. Minutes to complete discharge: 35 Discharge Summary Reason For Visit: TRANSIENT ISCHEMIC ATTACK/ALTERED MENTAL STATUS Condition: Improved - Instructions Diet, Activity, Other Instructions: You were admitted to the hospital for new weakness, slurred speech, and lethargy. You were seen by a neurologist who recommended Brain imaging. The brain MRI revealed old strokes with a possible small recent stroke, however the neurologist felt that your symptoms were due to recent medication changes. Your Mirtazapine was stopped and changed to Seroquel at night for better sleep. Your symptoms improved and at this time you are stable for discharge to home. Medications: You should stop taking Mirtazapine You should take Seroquel 25 mg by mouth at night before bed You should continue all of your other medications as they were prescribed by your primary doctor. Follow ups: You should be seen by your primary doctor within one week of discharge from the hospital. You should follow up with a neurologist. the name of the neurologist who saw you here has been provided to you. If you have any new severe weakness, difficulty speaking, or any other concerning symptoms, you should be seen by your doctor or return to the emergency department. if increased sedation during the day, seroquel dose could be decreased after consulting with MD Mclaughlin diet with [place] thick liquids. feed in upright position. meds crushed with apple sauce Referrals: Harman Chanel MD [Staff Physician] - 1 Week Margo Miller MD [Staff Physician] - 1 Week Disposition: VNS/HOME HEALTH CARE - Home Medications Comprehensive Discharge Medication List: Ambulatory Orders Aspirin [ASA -] 81 mg PO DAILY 05/10/17 Cholecalciferol (Vitamin D3) [D3-2000] 1 tab PO DAILY 05/10/17 Cyanocobalamin [Vitamin B12 -] 1 tab PO DAILY 05/10/17 Donepezil HCl [Aricept -] 5 mg PO DAILY 05/10/17 Levothyroxine [Synthroid -] 112 mcg PO DAILY 05/10/17 Propranolol HCl 10 mg PO BID 05/10/17 Uridine 300 mg PO DAILY 05/10/17 Acetaminophen [Tylenol] 500 mg PO BID 02/07/19 Docusate Sodium [Colace] 100 mg PO DAILY 02/07/19 Ferrous Sulfate 325 mg PO DAILY 02/07/19 Folic Acid 0.8 mg PO DAILY 02/07/19 Melatonin 10 mg PO HS 02/07/19 Atorvastatin Ca [Lipitor] 20 mg PO HS 02/08/19 Quetiapine Fumarate [Seroquel -] 25 mg PO HS #30 tablet 02/08/19 This patient is new to me today: No Emergency Visit: Yes ED Registration Date: 02/07/19 Care time: The patient presented to the Emergency Department on the above date and was hospitalized for further evaluation of their emergent condition. Critical Care patient: No - Discharge Referral Referred to [facility] Med P.C.: No
--- NOTE | 2019-02-09 13:09 | PN ---
Teaching Attending Note Name of Resident: Armando Baron ATTENDING PHYSICIAN STATEMENT I saw and evaluated the patient. I reviewed the resident's note and discussed the case with the resident. I agree with the resident's findings and plan as documented. SUBJECTIVE: No fever or chills. No abd pain. denies any complains , but does not want to participate in this conversation OBJECTIVE: Awake , knows her ,. alert, not very cooperative , calm. denied rest of exam , but has L lower facial droop. EOMI. Assessment/Plan: 89 y/o lady with h/o retinal vein occlusion, DM, HTN, hypothyridism, HLP, and dementia who was brought with facial droop and increased confusion and slurred speech 1-Acute stroke: - cont her home statin 20 mg HS - aspirin - tele reviewed today again. No Afib noted 2- AMS/possible metabolic encephalopathy due to volume depletion, meds or other. - no signs of infection, no recurrence of fever - mental status is almost at base line. - will not give day time serquel due to over sedation . cont HS seroquel. dose can be adjusted as out pt if over sedation is noted 3- H/o DM: A1c 5.9. she was taken off metformin. 4- volume depletion :improved. oral hydration 5- fever: unclear source. no signs of infection . no recurrence Dispo: dc home with home health care and 24 hr aid. f/u with neuro and PCP uree diet with nectar thick liquids
== END 2019-02-09 14:55 | disposition home health service (06) | DRG 64 ==
LOC: JER 21:19 → JERBED 23:30 → OBSVTOIN 02-07 00:25 → J4W 02-07 16:00
PROVIDERS: ADMIT Internal Medicine; ATTEND Internal Medicine
DX: I63.89 Other cerebral infarction (principal); G92 Toxic encephalopathy; I10 Essential (primary) hypertension; E78.5 Hyperlipidemia, unspecified; E11.9 Type 2 diabetes mellitus without complications; R29.703 NIHSS score 3; R41.82 Altered mental status, unspecified; E03.9 Hypothyroidism, unspecified; M81.0 Age-related osteoporosis without current pathological fracture; R47.81 Slurred speech; R50.9 Fever, unspecified; G30.9 Alzheimer's disease, unspecified; F02.80 Dementia in other diseases classified elsewhere, unspecified severity, without behavioral disturbance, psychotic disturbance, mood disturbance, and anxiety; G51.31 Clonic hemifacial spasm, right; T43.025A Adverse effect of tetracyclic antidepressants, initial encounter
CPT/HCPCS: 36415; 70450-TC; 70551-TC; 71045-TC-FY; 80048; 80053; 81003; 82465; 82550; 82607; 82746; 82962; 83036; 83718; 83721; 83735; 84100; 84134; 84443; 84478; 84484; 85025; 85610; 86593; 86850; 86900; 86901; 87086; 93005; 93010; 93306-TC; 93880-TC; 93971-TC; 97116-GP; 97161-GP; 99285-25; G0378; J0131; J1644; J7030